=== PATIENT | male | born 1955 | race Caucasian/White ===

== ENCOUNTER → 2021-05-18 13:58 | Outpatient (BNVA) | payer OTHER, MEDICARE, SELFPAY | PROVIDERS: Visit Provider Urology | DX: Z13.89 Encounter for screening for other disorder (principal) | CPT/HCPCS: 99212 ==

== ENCOUNTER 2021-11-08 09:09 | Outpatient (REF) | payer MEDICARE, MEDICAID, SELFPAY ==
[2021-11-08 12:12] LABS: PSA,Total (Free>4and<10) 0.43 ng/mL (0.00-4.00)
== END 2021-11-08 09:10 | disposition home or self-care (01) ==
LOC: HO.HMGCLDS 09:09
PROVIDERS: PCP Nurse Practitioner Family; Visit Provider Urology
DX: Z12.5 Encounter for screening for malignant neoplasm of prostate (principal); N13.8 Other obstructive and reflux uropathy; N40.1 Benign prostatic hyperplasia with lower urinary tract symptoms; R97.20 Elevated prostate specific antigen [PSA]
CPT/HCPCS: 36415; 84153

== ENCOUNTER → 2021-11-16 09:32 | Outpatient (BNVA) | payer MEDICARE, MEDICAID, SELFPAY | PROVIDERS: Visit Provider Urology | DX: N40.1 Benign prostatic hyperplasia with lower urinary tract symptoms (principal); R33.9 Retention of urine, unspecified; N31.9 Neuromuscular dysfunction of bladder, unspecified | CPT/HCPCS: 51798; 99212 ==

== ENCOUNTER 2022-04-26 15:24 | Outpatient (REF) | payer MEDICARE, MEDICAID, SELFPAY ==
--- NOTE | ~2022-04-26 | US_ITS ---
EXAMINATION: US RETROPERITONEAL LIMITED (RENAL ONLY) CLINICAL INFORMATION: Benign prostatic hyperplasia with lower urinary tract symptoms. COMPARISON: None TECHNIQUE: Real-time imaging of the kidneys. FINDINGS: RIGHT KIDNEY: 8.1 x 4.3 x 4.7 cm (SAG x AP x TRV). The kidney is normal in size, contour, and echogenicity. Renal cortical thickness is normal. No calculi or focal parenchymal lesions. No hydronephrosis. LEFT KIDNEY: 9.3 x 4.8 x 5.0 cm (SAG x AP x TRV). The kidney is normal in size, contour, and echogenicity. Renal cortical thickness is normal. No calculi or focal parenchymal lesions. No hydronephrosis. There are multiple punctate calcifications seen without twinkle. US/US renal BI IMPRESSION: Multiple calcification seen in the left kidney without shadowing. There is no hydronephrosis.
== END 2022-04-26 15:25 | disposition home or self-care (01) ==
LOC: HO.US 15:24
PROVIDERS: Visit Provider Urology
DX: N40.1 Benign prostatic hyperplasia with lower urinary tract symptoms (principal); R33.8 Other retention of urine
CPT/HCPCS: 76775

== ENCOUNTER → 2022-05-19 09:47 | Outpatient (BNVA) | payer MEDICARE, MEDICAID, SELFPAY | PROVIDERS: PCP Internal Medicine Endocrinology, Diabetes & Metabolism; Visit Provider Urology | DX: N40.1 Benign prostatic hyperplasia with lower urinary tract symptoms (principal); R33.9 Retention of urine, unspecified; N31.9 Neuromuscular dysfunction of bladder, unspecified; R97.20 Elevated prostate specific antigen [PSA] | CPT/HCPCS: 99212 ==

== ENCOUNTER → 2022-11-21 11:22 | Outpatient (BNVA) | payer MEDICARE, MEDICAID, SELFPAY | PROVIDERS: PCP Internal Medicine Endocrinology, Diabetes & Metabolism; Visit Provider Urology | DX: N40.1 Benign prostatic hyperplasia with lower urinary tract symptoms (principal); R33.8 Other retention of urine; N31.9 Neuromuscular dysfunction of bladder, unspecified | CPT/HCPCS: 51798; 99212 ==

== ENCOUNTER 2023-05-21 12:38 | Outpatient (REF) | payer MEDICARE, MEDICAID, SELFPAY ==
--- NOTE | ~2023-05-21 | US_ITS ---
EXAMINATION: US RETROPERITONEAL LIMITED (RENAL ONLY) CLINICAL INFORMATION: Neuromuscular dysfunction of bladder, unspecified. COMPARISON: Ultrasound retroperitoneal limited (renal only) 04/26/2022. TECHNIQUE: Real-time imaging of the kidneys. FINDINGS: RIGHT KIDNEY: 9.8 x 4.9 x 5.0 cm (SAG x AP x TRV). The kidney is normal in size, contour, and echogenicity. Renal cortical thickness is normal. No calculi or focal parenchymal lesions. No hydronephrosis. Calcifications without shadowing are again seen most likely vascular. LEFT KIDNEY: 9.6 x 5.5 x 5.2 cm (SAG x AP x TRV). The kidney is normal in size, contour, and echogenicity. Renal cortical thickness is normal. No calculi or focal parenchymal lesions. No hydronephrosis. Calcifications without shadowing are again seen most likely vascular US/US renal BI IMPRESSION: Normal-appearing kidneys without hydronephrosis.
== END 2023-05-21 12:39 | disposition home or self-care (01) ==
LOC: HO.US 12:38
PROVIDERS: PCP Internal Medicine Endocrinology, Diabetes & Metabolism; Visit Provider Urology
DX: N31.9 Neuromuscular dysfunction of bladder, unspecified (principal)
CPT/HCPCS: 76775

== ENCOUNTER 2023-07-10 13:35 | Outpatient (AMB) | payer MEDICARE, MEDICAID, SELFPAY ==
--- NOTE | 2023-07-10 13:54 | A.OFFVIS_ITS ---
Intake Intake Visit Reasons: 6M PVR/US(SET) Intake Note: Patient is present for Follow Up US/PVR Urology Med: Bethanechol, Finasteride, Tamsulosin Antibiotic Allergy: None Blood Thinner: None Pharmacy: [facility] PVR: 548ML Allergies acetaminophen [ACETAMINOPHEN] Allergy (Severe, Verified 11/21/22 11:28) HIVES hydrocodone [From Vicodin] Allergy (Unknown, Verified 12/21/22 13:15) Unknown salsalate Allergy (Unknown, Verified 11/21/22 11:28) Unknown simvastatin Allergy (Unknown, Verified 11/21/22 11:28) Unknown tramadol Allergy (Unknown, Verified 11/21/22 11:28) Unknown venlafaxine Allergy (Unknown, Verified 11/21/22 11:28) Unknown codeine [CODEINE] Adverse Reaction (Severe, Verified 11/21/22 11:28) NAUSEA & VOMITING Codeine Phosphate Allergy (Unknown, Uncoded 11/21/22 11:28) Unknown Codeine Sulfate Allergy (Unknown, Uncoded 11/21/22 11:28) Unknown HPI HPI Comments History of Present Illness Details Rc is a pleasant male. He is seen for the following urologic conditions - incomplete bladder emptying - lower urinary tract symptoms High PVRs continued today approximately 560 Discussed CIC again Refill medications and review in 6 months Restart bethanechol Lower urinary tract symptoms Longstanding elevated PVR 600 cc range Current therapy combination with maximum tamsulosin PSA had been as high as 6 normally 1.86 - 11/15 0.4 Imaging - 05/17 renal ultrasound punctate lesions left side PFSH Medical History Anxiety Asthma Elevated PSA HTN (hypertension) Review of Systems Const Denies chills and Denies fever(s) Card Reports no additional complaints and Denies syncope Resp Denies cough GI Denies abdominal pain and Denies heartburn Reports as per HPI and Denies change in libido Neuro Denies syncope Psych Denies change in libido Endo Denies change in libido Physical Exam Const General: cooperative, healthy appearing, comfortable and no acute distress Orientation/consciousness: patient oriented x3 HEENT Face and sinus: Yes normal facial exam Mouth: moist mucous membranes Neck Neck: Yes normal visual inspection, Yes full ROM and Yes trachea midline Chest Chest palpation & inspection: normal inspection of the chest Resp Effort & Inspection: normal respiratory effort, able to speak in complete sentences and no respiratory distress GI Inspection: Yes normal to inspection Back/Spine/Pelvis Cervical Spine: normal cervical lordosis Thoracic/Lumbar Spine: thoracic and lumbar spine normal to inspection Skin General skin exam: no rashes or lesions noted Neuro General: patient oriented x3, gait normal, tone normal and moves all extremities Extrem General: Yes normal to inspection and Yes capillary refill normal Office Procedures Post Void Residual Post Residual Void Post Void Residual (PVR): 548 [id number]-Uufz Void Residual by ultrasound Assessment & Plan Assessment & Plan (1) Elevated PSA: Code(s): R97.20 - Elevated prostate specific antigen [PSA] (2) Hypotonic neurogenic bladder: Code(s): N31.9 - Neuromuscular dysfunction of bladder, unspecified Plan Six month follow-up Orders: Orders AMB Post Void Residual by ultrasound Today N40.1 - Benign prostatic hyperplasia with lower urinary tract symptoms, R33.9 - Retention of urine, unspecified Medications: Changed From bethanechol chloride 50 mg PO BID To bethanechol chloride 50 mg PO BID 180 tabs 1RF 90 days Patient Instructions: Imaging studies, laboratory and physical exam results were discussed and reviewed in detail. No major barriers to patient understanding were identified. An opportunity to ask questions regarding the treatment plan was provided. All questions were answered. The patient expressed understanding and agreement with the above treatment plan. The patient is aware they should contact our office by phone for worsening of their current condition or the appearance of new urologic symptoms. Compliance is encouraged with any medications and followup testing that is ordered. It is a privilege to participate in the urologic care of your patient. If you have any questions or concerns regarding treatment for the above conditions, or other urologic issues, please do not hesitate to contact me. The office telephone contact is [phone]. This note is constructed using voice recognition software. While every effort has been made to ensure accuracy supervisor boat outfitting errors may have been included. Yours sincerely, Dr Piotr Fabian MD, [facility] - Urology Providers of Expert, Compassionate Care for the Genitourinary System Coding Level of Care Code Est Pt Level 3 (82441) Diagnoses Elevated PSA R97.20 Hypotonic neurogenic bladder N31.9 CPT Codes Post Residual Void - PVR CPT Code: 54720-Fyxl Void Residual by ultrasound ([id number])
== END 2023-07-10 14:16 | disposition home or self-care (01) ==
PROVIDERS: Visit Provider Urology
DX: R97.20 Elevated prostate specific antigen [PSA] (principal); N31.9 Neuromuscular dysfunction of bladder, unspecified
CPT/HCPCS: 99213

== ENCOUNTER → 2023-07-10 13:35 | Outpatient (BNVA) | payer MEDICARE, MEDICAID, SELFPAY | PROVIDERS: Visit Provider Urology | DX: R97.20 Elevated prostate specific antigen [PSA] (principal); N31.9 Neuromuscular dysfunction of bladder, unspecified | CPT/HCPCS: 51798; 99212 ==

== ENCOUNTER 2024-03-13 09:59 | Outpatient (AMB) | payer OTHER, MEDICAID, SELFPAY ==
--- NOTE | 2024-03-13 10:21 | MHC.OFFVIS ---
Intake Intake Visit Reasons: 6M PVR(Confirmed) Intake Note: Patient is Present for Follow Up Urology Medication: Bethanechol, Finasteride, Tamsulosin Antibiotic Allergies: None Blood Thinners: None PVR: 239 Allergies acetaminophen [ACETAMINOPHEN] Allergy (Severe, Verified 03/13/24 10:22) HIVES hydrocodone [From Vicodin] Allergy (Unknown, Verified 03/13/24 10:22) Unknown salsalate Allergy (Unknown, Verified 03/13/24 10:22) Unknown simvastatin Allergy (Unknown, Verified 03/13/24 10:22) Unknown tramadol Allergy (Unknown, Verified 03/13/24 10:22) Unknown venlafaxine Allergy (Unknown, Verified 03/13/24 10:22) Unknown codeine [CODEINE] Adverse Reaction (Severe, Verified 03/13/24 10:22) NAUSEA & VOMITING Codeine Phosphate Allergy (Unknown, Uncoded 03/13/24 10:22) Unknown Codeine Sulfate Allergy (Unknown, Uncoded 03/13/24 10:22) Unknown Medication List - Last Reconciled 03/13/24 by Piotr Fabian MD bethanechol chloride 50 mg PO BID 90 days ergocalciferol (vitamin D2) 1,250 mcg PO QWEEK finasteride 5 mg PO DAILY 90 days magnesium oxide 800 mg PO BID tamsulosin 0.8 mg (2 x 0.4 mg) PO DAILY 90 days HPI HPI Comments History of Present Illness Details Rc is a pleasant male. 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 Previously discussed prostate procedure Lower urinary tract symptoms Longstanding elevated PVR 600 cc range Current therapy combination with maximum tamsulosin, finasteride and bethanechol PSA had been as high as 6 normally 1.86 - 11/15 0.4 Imaging - 05/17 renal ultrasound punctate lesions left side PFSH Medical History HTN (hypertension) Anxiety Asthma Elevated PSA Review of Systems Const Denies chills and Denies fever(s) Card Reports no additional complaints and Denies syncope Resp Denies cough GI Denies abdominal pain and Denies heartburn Reports as per HPI and Denies change in libido Neuro Denies syncope Psych Denies change in libido Endo Denies change in libido Physical Exam Const General: cooperative, healthy appearing, comfortable and no acute distress Orientation/consciousness: patient oriented x3 HEENT Face and sinus: Yes normal facial exam Mouth: moist mucous membranes Neck Neck: Yes normal visual inspection, Yes full ROM and Yes trachea midline Chest Chest palpation & inspection: normal inspection of the chest Resp Effort & Inspection: normal respiratory effort, able to speak in complete sentences and no respiratory distress GI Inspection: Yes normal to inspection Back/Spine/Pelvis Cervical Spine: normal cervical lordosis Thoracic/Lumbar Spine: thoracic and lumbar spine normal to inspection Skin General skin exam: no rashes or lesions noted Neuro General: patient oriented x3, gait normal, tone normal and moves all extremities Extrem General: Yes normal to inspection and Yes capillary refill normal Office Procedures Post Void Residual Post Residual Void Post Void Residual (PVR): 239 31122-Ttyc Void Residual by ultrasound Assessment & Plan Assessment & Plan (1) Hypotonic neurogenic bladder: Code(s): N31.9 - Neuromuscular dysfunction of bladder, unspecified (2) Incomplete emptying of bladder due to benign prostatic hyperplasia: Code(s): N40.1 - Benign prostatic hyperplasia with lower urinary tract symptoms; R33.9 - Retention of urine, unspecified Plan Continue six-month follow-up with PVR Orders: Orders AMB Post Void Residual by ultrasound Today N40.1 - Benign prostatic hyperplasia with lower urinary tract symptoms, R33.9 - Retention of urine, unspecified Medications: Refilled bethanechol chloride 50 mg PO BID 90 days 180 tabs 1RF N31.9 - Neuromuscular dysfunction of bladder, unspecified tamsulosin 0.8 mg (2 x 0.4 mg) PO DAILY 90 days 180 caps 1RF N40.1 - Benign prostatic hyperplasia with lower urinary tract symptoms, R33.9 - Retention of urine, unspecified finasteride 5 mg PO DAILY 90 days 90 tabs 1RF N40.1 - Benign prostatic hyperplasia with lower urinary tract symptoms, R33.9 - Retention of urine, unspecified Patient Instructions: Imaging studies, laboratory and physical exam results were discussed and reviewed in detail. No major barriers to patient understanding were identified. An opportunity to ask questions regarding the treatment plan was provided. All questions were answered. The patient expressed understanding and agreement with the above treatment plan. The patient is aware they should contact our office by phone for worsening of their current condition or the appearance of new urologic symptoms. Compliance is encouraged with any medications and followup testing that is ordered. It is a privilege to participate in the urologic care of your patient. If you have any questions or concerns regarding treatment for the above conditions, or other urologic issues, please do not hesitate to contact me. The office telephone contact is [phone]. This note is constructed using voice recognition software. While every effort has been made to ensure accuracy plastic installer errors may have been included. Yours sincerely, Dr Piotr Fabian MD, [facility] - Urology Providers of Expert, Compassionate Care for the Genitourinary System Coding Level of Care Code Est Pt Level 3 (68974) Diagnoses Hypotonic neurogenic bladder N31.9 Incomplete emptying of bladder due to benign prostatic hyperplasia N40.1; R33.9 CPT Codes Post Residual Void - PVR CPT Code: 77342-Orzu Void Residual by ultrasound ([id number])
== END 2024-03-13 10:42 | disposition home or self-care (01) ==
PROVIDERS: PCP Internal Medicine Endocrinology, Diabetes & Metabolism; Visit Provider Urology
DX: N31.9 Neuromuscular dysfunction of bladder, unspecified (principal); N40.1 Benign prostatic hyperplasia with lower urinary tract symptoms; R33.9 Retention of urine, unspecified
CPT/HCPCS: 99213

== ENCOUNTER → 2024-03-13 09:59 | Outpatient (BNVA) | payer OTHER, MEDICARE, MEDICAID, SELFPAY | PROVIDERS: PCP Internal Medicine Endocrinology, Diabetes & Metabolism; Visit Provider Urology | DX: N40.1 Benign prostatic hyperplasia with lower urinary tract symptoms (principal); N13.8 Other obstructive and reflux uropathy; N31.9 Neuromuscular dysfunction of bladder, unspecified; R33.9 Retention of urine, unspecified; Z79.899 Other long term (current) drug therapy | CPT/HCPCS: 51798; 99212 ==

== ENCOUNTER 2024-10-27 11:30 | Outpatient (AMB) | payer OTHER, SELFPAY ==
--- NOTE | 2024-10-27 11:56 | A.OFFVIS_ITS ---
Intake Visit Reasons: 6m/PVR Intake Note: Patient presents today for follow up on: neurogenic bladder and incomplete bladder emptying Urology Medication: Bethanechol, Finasteride, Tamsulosin Antibiotic Allergies: None Blood Thinners: Xarelto PVR: 516ml's Technical Expert Required: No Accompanied by: Self / Same As Patient Allergies acetaminophen [ACETAMINOPHEN] Allergy (Severe, Verified 10/27/24 13:20) HIVES hydrocodone [From Vicodin] Allergy (Unknown, Verified 10/27/24 13:20) Unknown salsalate Allergy (Unknown, Verified 10/27/24 13:20) Unknown simvastatin Allergy (Unknown, Verified 10/27/24 13:20) Unknown tramadol Allergy (Unknown, Verified 10/27/24 13:20) Unknown venlafaxine Allergy (Unknown, Verified 10/27/24 13:20) Unknown codeine [CODEINE] Adverse Reaction (Severe, Verified 10/27/24 13:20) NAUSEA & VOMITING Codeine Phosphate Allergy (Unknown, Uncoded 10/27/24 13:20) Unknown Codeine Sulfate Allergy (Unknown, Uncoded 10/27/24 13:20) Unknown Medication List - Last Reconciled 10/27/24 by HARLEY Botello- bethanechol chloride 50 mg PO BID 90 days ergocalciferol (vitamin D2) 1,250 mcg PO QWEEK finasteride 5 mg PO DAILY 90 days magnesium oxide 800 mg PO BID tamsulosin 0.8 mg (2 x 0.4 mg) PO DAILY 90 days HPI Comments Details: Rc is a pleasant 69 year old male patient of Dr. Bloom. He has a past medical history of hypertension, asthma, anxiety, and elevated PSA. He presents to the office today for follow-up of his incomplete bladder emptying and lower urinary tract symptoms. In discussion with the patient today reports to be doing and feeling well. He denies having had any bothersome urinary issues or concerns since his last office visit here approximately [address] Fabian. He reports compliance with bethanechol, finasteride, and Flomax as prescribed. In office urinalysis results 3+ leukocytes otherwise within normal limits. PVR 516 mL. He denies urinary urgency, urinary frequency, incontinence, nocturia, hematuria, dysuria, foul smelling urine, changes to urinary stream, flank pain, fever, and or chills. He is happy with his current voiding parameters. We discussed at length further treatment options of incomplete bladder emptying and affects of increased in PVR however patient declines to CIC and or have indwelling catheter placed. We discussed potential for UTI given 3+ leukocytes with increased PVR. Will send for urine culture. We discussed at length importance of emptying bladder and affects of not doing so however he continues to decline further intervention although risks were discussed. He otherwise offers no other issues or concerns at this time. Lower urinary tract symptoms Longstanding elevated PVR 600 cc range Current therapy combination with maximum tamsulosin, finasteride and bethanechol PSA had been as high as 6 normally 1.86 - 11/15 0.4 Imaging - 05/17 renal ultrasound punctate lesions left side [facility] Medical History HTN (hypertension) Anxiety Asthma Elevated PSA Review of Systems Const All systems reviewed & are unremarkable except as noted in HPI and below Physical Exam Const General: cooperative, comfortable, no acute distress, well developed, alert and awake Nutritional Appearance: average body habitus Orientation/consciousness: patient oriented x3 Limitations: no limitations HEENT Head: Yes normal to inspection, Yes normocephalic and Yes atraumatic Ears: hearing grossly normal bilaterally Eyes General: appearance normal, both eyes and all related structures Neck Neck: Yes normal visual inspection and Yes trachea midline Chest Chest palpation & inspection: normal inspection of the chest Resp Effort & Inspection: normal respiratory effort and able to speak in complete sentences Cardio Rate: regular rate GI Inspection: Yes normal to inspection General: Yes no CVA tenderness Back/Spine/Pelvis Back: no CVA tenderness Skin General skin exam: no rashes or lesions noted Neuro General: patient oriented x3 Extrem General: Yes normal to inspection Psych Appearance: grossly normal and well kempt Mental Status: mental status grossly normal Speech and movement: Normal speech and movement present and Clear speech present Affect: normal affect Attitude: cooperative Thought process: Normal thought process present Thought content: Normal thought content present Insight: Fair insight present (Psych) Judgement: Fair judgement present (Psych) Office Procedures Post Void Residual Post Residual Void Post Void Residual (PVR): 516 [id number]-[id number] Void Residual by ultrasound Results AMB Urinalysis, Automated UA Leukoctes 500 Matt/uL Last Edit by Kiya Campos on 10/27/24 12:19 UA Nitrite Last Edit by Kiya Campos on 10/27/24 12:19 UA Urobilinogen 0.2 mg/dL Last Edit by Kiya Campos on 10/27/24 12:19 UA Protein 0 mg/dL Last Edit by Kiya Campos on 10/27/24 12:19 UA pH 8.0 Last Edit by Kiya Campos on 10/27/24 12:19 UA Blood 0 Jaya/uL Last Edit by Kiya Campos on 10/27/24 12:19 UA Specific [place] 1.010 Last Edit by Kiya Campos on 10/27/24 12:19 UA Ketone Negative Last Edit by Kiya Campos on 10/27/24 12:19 UA Bilirubin 0 mg/dL Last Edit by Kiya Campos on 10/27/24 12:19 UA Glucose 0 mg/dL Last Edit by Kiya Campos on 10/27/24 12:19 Results Reviewed Results Reviewed: Laboratory Last Values Urine pH (Auto) 8.0 10/27/24 12:18 Specific [place] (Auto) 1.010 10/27/24 12:18 Urine Protein (Auto) 0 mg/dL 10/27/24 12:18 Glucose (UA)(Auto) 0 mg/dL 10/27/24 12:18 Urine Ketones (Auto) Negative 10/27/24 12:18 Urine Blood (Auto) 0 Jaya/uL 10/27/24 12:18 Urine Bilirubin (Auto) 0 mg/dL 10/27/24 12:18 Urine Urobilinogen (Auto) 0.2 mg/dL 10/27/24 12:18 Leukocyte Esterase (Auto) 500 Matt/uL 10/27/24 12:18 Assessment & Plan Assessment & Plan (1) Hypotonic neurogenic bladder: Code(s): N31.9 - Neuromuscular dysfunction of bladder, unspecified Category: Medical (2) Elevated PSA: Code(s): R97.20 - Elevated prostate specific antigen [PSA] Category: Medical (3) Incomplete emptying of bladder due to benign prostatic hyperplasia: Code(s): N40.1 - Benign prostatic hyperplasia with lower urinary tract symptoms; R33.9 - Retention of urine, unspecified Category: Medical (4) Urinary tract infection: Code(s): N39.0 - Urinary tract infection, site not specified Category: Medical Plan In office urinalysis results reviewed with the patient today; as noted above; will send for urine culture. Start Bactrim as discussed and prescribed. PVR 516 mL We discussed further treatment options of incomplete bladder emptying/urinary retention; we discussed CIC verses indwelling catheter however despite Education regarding importance in doing so patient continues to decline either treatment option. He reports be happy with current voiding parameters. Continue bethanechol, Flomax, and finasteride as prescribed. Discussed obtaining PSA status post completion of antibiotic therapy as results can be skewed due to potential urinary tract infection. Follow-up with nursing in 2 weeks to further assess PVR. Follow-up with provider in 1-2 months; or sooner with any issues, concerns, and or questions. Orders: Orders AMB Urinalysis Automated Today Z13.9 - Encounter for screening, unspecified Prostate Specific Antigen Today R97.20 - Elevated prostate specific antigen [PSA] AMB Post Void Residual by ultrasound Today N31.9 - Neuromuscular dysfunction of bladder, unspecified Urine Culture Today Z13.9 - Encounter for screening, unspecified Medications: New sulfamethoxazole-trimethoprim 800-160 mg (Bactrim DS) 1 tab PO BID 7 days 14 tabs 0RF N39.0 - Urinary tract infection, site not specified Refilled tamsulosin 0.8 mg (2 x 0.4 mg) PO DAILY 90 days 180 caps 1RF N40.1 - Benign prostatic hyperplasia with lower urinary tract symptoms, R33.9 - Retention of urine, unspecified finasteride 5 mg PO DAILY 90 days 90 tabs 1RF N40.1 - Benign prostatic hyperplasia with lower urinary tract symptoms, R33.9 - Retention of urine, unspecified bethanechol chloride 50 mg PO BID 90 days 180 tabs 1RF N31.9 - Neuromuscular dysfunction of bladder, unspecified Patient Instructions: The patient had an opportunity to ask questions regarding the treatment plan. All questions were answered. Physical exam, labs, and imaging were discussed and reviewed in detail. As well as risks, benefits, and discussion of treatment choices. No major barriers to understanding were identified. The patient expressed understanding and agreement with the above treatment plan. The patient was made aware they should contact our office by phone for worsening of their current condition, the appearance of new symptoms, or with any questions or concerns. Compliance is encouraged with any medications and follow up testing that is ordered. It is a privilege to be allowed the opportunity to participate in? your urological care.? Again, if you have any questions or concerns If you have any questions or concerns please do not hesitate to contact me. The office is [phone]. This note is constructed using voice recognition software. While every effort has been made to ensure accuracy community engagement specialist errors may have been included. Yours sincerely, LA Botello Coding Level of Care Code Est Pt Level 4 (32308) Complex EM visit Add On G2211 Diagnoses Hypotonic neurogenic bladder N31.9 Elevated PSA R97.20 Incomplete emptying of bladder due to benign prostatic hyperplasia N40.1; R33.9 Urinary tract infection N39.0 CPT Codes Post Residual Void - PVR CPT Code: 33333-Ufnf Void Residual by ultrasound ([id number])
== END 2024-10-27 12:30 | disposition home or self-care (01) ==
PROVIDERS: PCP Internal Medicine Endocrinology, Diabetes & Metabolism; Visit Provider Nurse Practitioner Family
DX: N31.9 Neuromuscular dysfunction of bladder, unspecified (principal); R97.20 Elevated prostate specific antigen [PSA]; N40.1 Benign prostatic hyperplasia with lower urinary tract symptoms; R33.9 Retention of urine, unspecified; N39.0 Urinary tract infection, site not specified; Z13.9 Encounter for screening, unspecified
CPT/HCPCS: 99214; G2211

== ENCOUNTER 2024-10-27 11:30 | Outpatient (REF) | payer OTHER, SELFPAY | END 2024-10-27 11:31 | disposition home or self-care (01) | LOC: HO.LNP 11:30 | PROVIDERS: PCP Internal Medicine Endocrinology, Diabetes & Metabolism; Visit Provider Nurse Practitioner Family | DX: R97.20 Elevated prostate specific antigen [PSA] (principal); N31.9 Neuromuscular dysfunction of bladder, unspecified; N39.0 Urinary tract infection, site not specified; N40.1 Benign prostatic hyperplasia with lower urinary tract symptoms; R33.9 Retention of urine, unspecified | CPT/HCPCS: 51798; 81003; 87086; 99212 ==

== ENCOUNTER → 2024-11-10 10:41 | Outpatient (BNVA) | payer OTHER, SELFPAY | PROVIDERS: PCP Internal Medicine Endocrinology, Diabetes & Metabolism; Visit Provider Nurse Practitioner Family | DX: N40.1 Benign prostatic hyperplasia with lower urinary tract symptoms (principal); N31.9 Neuromuscular dysfunction of bladder, unspecified; N39.0 Urinary tract infection, site not specified; R33.8 Other retention of urine | CPT/HCPCS: 51798 ==

== ENCOUNTER 2024-12-26 12:10 | Outpatient (REF) | payer OTHER, SELFPAY ==
[2024-12-26 14:30] LABS: Prostate Specific Antigen 0.42 ng/mL (<0.05-4.0)
== END 2024-12-26 12:11 | disposition home or self-care (01) ==
LOC: HO.10HDL 12:10
PROVIDERS: Visit Provider Nurse Practitioner Family
DX: Z12.5 Encounter for screening for malignant neoplasm of prostate (principal); R97.20 Elevated prostate specific antigen [PSA]
CPT/HCPCS: 36415; 84153

== ENCOUNTER 2024-12-29 11:21 | Outpatient (AMB) | payer OTHER, SELFPAY ==
--- NOTE | 2024-12-29 11:32 | A.OFFVIS_ITS ---
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 Required: No Accompanied by: Self / Same As Patient Allergies acetaminophen [ACETAMINOPHEN] Allergy (Severe, Verified 12/29/24 12:07) HIVES hydrocodone [From Vicodin] Allergy (Unknown, Verified 12/29/24 12:07) Unknown salsalate Allergy (Unknown, Verified 12/29/24 12:07) Unknown simvastatin Allergy (Unknown, Verified 12/29/24 12:07) Unknown tramadol Allergy (Unknown, Verified 12/29/24 12:07) Unknown venlafaxine Allergy (Unknown, Verified 12/29/24 12:07) Unknown codeine [CODEINE] Adverse Reaction (Severe, Verified 12/29/24 12:07) NAUSEA & VOMITING Codeine Phosphate Allergy (Unknown, Uncoded 12/29/24 12:07) Unknown Codeine Sulfate Allergy (Unknown, Uncoded 12/29/24 12:07) Unknown Medication List - Last Reconciled 12/29/24 by HARLEY Botello- bethanechol chloride 50 mg PO BID 90 days ergocalciferol (vitamin D2) 1,250 mcg PO QWEEK finasteride 5 mg PO DAILY 90 days magnesium oxide 800 mg PO BID tamsulosin 0.8 mg (2 x 0.4 mg) PO DAILY 90 days HPI Comments Details: Rc is a pleasant 69 year old male patient of Dr. Bloom was accompanied by his significant other at today's office visit. He has a past medical history of hypertension, asthma, anxiety, and elevated PSA. He presents to the office today for follow-up of his incomplete bladder emptying and lower urinary tract symptoms. In discussion with the patient today reports new onset of gross hematuria this morning. He reports he has been performing CIC at least 2 times per day. However, he did not catheterize today as he woke up with gross hematuria. We discussed at length potential causes of gross hematuria as well as further interventions. He does have a longstanding history of nicotine dependence for over 40 years. Unable to obtain urine for urinalysis as patient was unable to void however PVR 445ml's. He reports compliance with urological medications as prescribed which include Flomax, finasteride, and bethanechol. We discussed obtaining CT urogram for further assessment evaluation as well as in office cystoscopy for further assessment evaluation. He denies murinary urgency, urinary frequency, incontinence, nocturia, dysuria, foul smelling urine, changes to urinary stream, flank pain, fever, and or chills. We discussed at length further interventions regarding incomplete bladder emptying/urinary retention he continues to decline further treatment options although we discussed risks of incomplete bladder emptying/urinary retention. He otherwise offers no other issues or concerns at this time. Lower urinary tract symptoms Longstanding elevated PVR 600 cc range Current therapy combination with maximum tamsulosin, finasteride and bethanechol PSA had been as high as 6 normally 1.86 - 11/15 0.4 Imaging - 05/17 renal ultrasound punctate lesions left side [facility] Medical History HTN (hypertension) Anxiety Asthma Elevated PSA Review of Systems Const All systems reviewed & are unremarkable except as noted in HPI and below Physical Exam Const General: cooperative, comfortable, no acute distress, well developed, alert and awake Nutritional Appearance: average body habitus Orientation/consciousness: patient oriented x3 Limitations: no limitations HEENT Head: Yes normal to inspection, Yes normocephalic and Yes atraumatic Ears: hearing grossly normal bilaterally Eyes General: appearance normal, both eyes and all related structures Neck Neck: Yes normal visual inspection and Yes trachea midline Chest Chest palpation & inspection: normal inspection of the chest Resp Effort & Inspection: normal respiratory effort and able to speak in complete sentences Cardio Rate: regular rate GI Inspection: Yes normal to inspection General: Yes no CVA tenderness Back/Spine/Pelvis Back: no CVA tenderness Skin General skin exam: no rashes or lesions noted Neuro General: patient oriented x3 Extrem General: Yes normal to inspection Psych Appearance: grossly normal and well kempt Mental Status: mental status grossly normal Speech and movement: Normal speech and movement present and Clear speech present Affect: normal affect Attitude: cooperative Thought process: Normal thought process present Thought content: Normal thought content present Insight: Fair insight present (Psych) Judgement: Fair judgement present (Psych) Office Procedures Post Void Residual Post Residual Void Post Void Residual (PVR): 445 [id number]-[id number] Void Residual by ultrasound Assessment & Plan Assessment & Plan (1) Gross hematuria: Code(s): R31.0 - Gross hematuria Category: Medical (2) Hypotonic neurogenic bladder: Code(s): N31.9 - Neuromuscular dysfunction of bladder, unspecified Category: Medical (3) Elevated PSA: Code(s): R97.20 - Elevated prostate specific antigen [PSA] Category: Medical (4) Incomplete emptying of bladder due to benign prostatic hyperplasia: Code(s): N40.1 - Benign prostatic hyperplasia with lower urinary tract symptoms; R33.9 - Retention of urine, unspecified Category: Medical Plan Unable to obtain urine for urinalysis however PVR 445 mL. We discussed at length potential causes of incomplete bladder emptying/urinary retention and gross hematuria. Will obtain CT urogram for further assessment evaluation. We discussed further treatment options of incomplete bladder emptying/urinary retention. He continues to decline further treatment options and would like to continue to CIC 2 times per day; we discussed importance in doing so. Will obtain BUN and creatinine for imaging. Will obtain PSA for further assessment evaluation. Continue Flomax, finasteride, and bethanechol as prescribed. We discussed at length the importance of limiting/quitting nicotine dependence for overall health and well-being. Follow-up in office cystoscopy with imaging and labs to be completed prior; or sooner with any issues, concerns, and or questions. Orders: Orders AMB Post Void Residual by ultrasound Today N40.1 - Benign prostatic hyperplasia with lower urinary tract symptoms, R33.9 - Retention of urine, unspecified CT urogram Today R31.0 - Gross hematuria Prostate Specific Antigen Today R31.0 - Gross hematuria Blood Urea Nitrogen Today R31.0 - Gross hematuria Creatinine Today R31.0 - Gross hematuria Patient Instructions: The patient had an opportunity to ask questions regarding the treatment plan. All questions were answered. Physical exam, labs, and imaging were discussed and reviewed in detail. As well as risks, benefits, and discussion of treatment choices. No major barriers to understanding were identified. The patient exp ressed understanding and agreement with the above treatment plan. The patient was made aware they should contact our office by phone for worsening of their current condition, the appearance of new symptoms, or with any questions or concerns. Compliance is encouraged with any medications and follow up testing that is ordered. It is a privilege to be allowed the opportunity to participate in? your urological care.? Again, if you have any questions or concerns If you have any questions or concerns please do not hesitate to contact me. The office is [phone]. This note is constructed using voice recognition software. While every effort has been made to ensure accuracy supervisor coal handling errors may have been included. Yours sincerely, AMERICO Botello Coding Level of Care Code Est Pt Level 4 (39981) Complex EM visit Add On G2211 Diagnoses Gross hematuria R31.0 Hypotonic neurogenic bladder N31.9 Elevated PSA R97.20 Incomplete emptying of bladder due to benign prostatic hyperplasia N40.1; R33.9 CPT Codes Post Residual Void - PVR CPT Code: 02154-Pmub Void Residual by ultrasound ([id number])
== END 2024-12-29 12:10 | disposition home or self-care (01) ==
PROVIDERS: PCP Internal Medicine Endocrinology, Diabetes & Metabolism; Visit Provider Nurse Practitioner Family
DX: R31.0 Gross hematuria (principal); N31.9 Neuromuscular dysfunction of bladder, unspecified; R97.20 Elevated prostate specific antigen [PSA]; N40.1 Benign prostatic hyperplasia with lower urinary tract symptoms; R33.9 Retention of urine, unspecified
CPT/HCPCS: 99214; G2211

== ENCOUNTER → 2024-12-29 11:21 | Outpatient (BNVA) | payer OTHER, SELFPAY | PROVIDERS: PCP Internal Medicine Endocrinology, Diabetes & Metabolism; Visit Provider Nurse Practitioner Family | DX: N31.9 Neuromuscular dysfunction of bladder, unspecified (principal); R31.0 Gross hematuria; R97.20 Elevated prostate specific antigen [PSA]; N40.1 Benign prostatic hyperplasia with lower urinary tract symptoms; R33.8 Other retention of urine | CPT/HCPCS: 51798; 99212 ==

== ENCOUNTER 2025-01-26 09:16 | Outpatient (REF) | payer OTHER, SELFPAY ==
[2025-01-26 10:55] LABS: Blood Urea Nitrogen 14 mg/dL (9-16); Estimated Glomerular Filt Rate > 60
[2025-01-26 11:15] LABS: Prostate Specific Antigen 0.51 ng/mL (<0.05-4.0)
== END 2025-01-26 09:17 | disposition home or self-care (01) ==
LOC: HO.10HDL 09:16
PROVIDERS: Visit Provider Nurse Practitioner Family
DX: R31.0 Gross hematuria (principal); Z12.5 Encounter for screening for malignant neoplasm of prostate
CPT/HCPCS: 36415; 82565; 84153; 84520

== ENCOUNTER 2025-02-24 15:19 | Outpatient (REF) | payer OTHER, SELFPAY ==
--- NOTE | ~2025-02-24 | CT_ITS ---
CLINICAL HISTORY: R31.0 - Gross hematuria CT abdomen and pelvis with and without contrast Comparison: US/SR - US RENAL BI - 05/21/23 12:49 EDT Findings: No consolidation at the lung bases. Elevation of the right hemidiaphragm. Cholelithiasis. No gallbladder wall thickening or pericholecystic fluid. The bladder is distended, measuring 13.1 cm in craniocaudal dimension. There is bladder wall thickening and diverticula. No bladder stone. 1.5 cm lesion in the left adrenal gland which measures-10 Hounsfield units on the noncontrast images, indicating an adrenal adenoma. No hydronephrosis or nephrolithiasis. The kidneys enhance normally and excrete contrast symmetrically. The prostate is normal in size, measuring 3.6 cm in transverse dimension. The other solid organs are unremarkable. Underdistention is favored over wall thickening of the stomach. No bowel wall thickening or dilation. A normal appendix is identified. There are anastomotic sutures at the rectosigmoid junction. No aneurysm. The infrarenal abdominal aorta measures up to 2.6 cm. Intraluminal calcifications within the infrarenal abdominal aorta with associated soft plaque, chronic. Severe calcified atherosclerotic disease. No lymphadenopathy. No ascites. Status post supraumbilical ventral hernia repair. Small fat containing left inguinal hernia. No acute osseous abnormality. Impression: No urinary tract stone or acute obstruction. Mild wall thickening of the bladder with diverticula likely indicates chronic outlet obstruction. This document has been electronically signed by: Kira Herrera MD on 02/25/2025 16:59:37
[2025-02-24] MEDS: iohexoL 350 MG/ML 100 ML INFUS..BTL IV (17:00)
== END 2025-02-24 15:20 | disposition home or self-care (01) ==
LOC: HO.CT 15:19
PROVIDERS: PCP Nurse Practitioner Family; Visit Provider Nurse Practitioner Family
DX: R31.0 Gross hematuria (principal)
CPT/HCPCS: 74178; Q9967

== ENCOUNTER → 2025-02-24 15:21 | Outpatient (BNV) | payer OTHER, SELFPAY | PROVIDERS: PCP Nurse Practitioner Family; Visit Provider Radiology Diagnostic Radiology | DX: R31.0 Gross hematuria (principal) | CPT/HCPCS: 74178 ==

== ENCOUNTER 2025-03-20 10:41 | Outpatient (AMB) | payer OTHER, SELFPAY ==
--- NOTE | 2025-03-20 10:46 | A.OFFVIS_ITS ---
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: No Accompanied by: Self / Same As Patient Allergies acetaminophen [ACETAMINOPHEN] Allergy (Severe, Verified 03/20/25 10:47) HIVES hydrocodone [From Vicodin] Allergy (Unknown, Verified 03/20/25 10:47) Unknown salsalate Allergy (Unknown, Verified 03/20/25 10:47) Unknown simvastatin Allergy (Unknown, Verified 03/20/25 10:47) Unknown tramadol Allergy (Unknown, Verified 03/20/25 10:47) Unknown venlafaxine Allergy (Unknown, Verified 03/20/25 10:47) Unknown codeine [CODEINE] Adverse Reaction (Severe, Verified 03/20/25 10:47) NAUSEA & VOMITING Codeine Phosphate Allergy (Unknown, Uncoded 12/29/24 12:07) Unknown Codeine Sulfate Allergy (Unknown, Uncoded 12/29/24 12:07) Unknown HPI Comments Details: Rc is a pleasant male. He is seen for the following urologic conditions - incomplete bladder emptying - lower urinary tract symptoms Recent episode of gross hematuria Has been performing CIC at least twice a day Lower PVR 240 cc, prior PVR 560 Continue with bethanechol, finasteride and Flomax Previously discussed prostate procedure Hematuria Imaging - 02/17 CT Urogram - The bladder is distended, measuring 13.1 cm in craniocaudal dimension. There is bladder wall thickening and diverticula Lower urinary tract symptoms Longstanding elevated PVR 600 cc range Current therapy combination with maximum tamsulosin, finasteride and bethanechol PSA had been as high as 6 normally 1.86 - 11/15 0.4 Imaging - 05/17 renal ultrasound punctate lesions left side [facility] Medical History HTN (hypertension) Anxiety Asthma Elevated PSA Review of Systems Const Denies chills and Denies fever(s) Card Reports no additional complaints and Denies syncope Resp Denies cough GI Denies abdominal pain and Denies heartburn Reports as per HPI and Denies change in libido Neuro Denies syncope Psych Denies change in libido Endo Denies change in libido Physical Exam Const General: cooperative, healthy appearing, comfortable and no acute distress Orientation/consciousness: patient oriented x3 HEENT Face and sinus: Yes normal facial exam Mouth: moist mucous membranes Neck Neck: Yes normal visual inspection, Yes full ROM and Yes trachea midline Chest Chest palpation & inspection: normal inspection of the chest Resp Effort & Inspection: normal respiratory effort, able to speak in complete sentences and no respiratory distress GI Inspection: Yes normal to inspection Back/Spine/Pelvis Cervical Spine: normal cervical lordosis Thoracic/Lumbar Spine: thoracic and lumbar spine normal to inspection Skin General skin exam: no rashes or lesions noted Neuro General: patient oriented x3, gait normal, tone normal and moves all extremities Extrem General: Yes normal to inspection and Yes capillary refill normal Office Procedures Cystoscopy Consent Discussed risk and benefit or proposed procedure with the patient. Information consent for procedure given to the patient. Discussed technical aspects, risks, benefits and alternatives in full. Addressed all of the patient's questions and concerns regarding the procedure. The patient demonstrated knowledge and understanding. They wish to proceed with this procedure. Preparation The patient was prepped in the usual manner. A wildlife removal specialist was present and in the room. Genitalia was prepped with betadine solution in a sterile manner. Lidocaine Jelly 2% was placed into the urethra and 16Fr flexible Olympus cystoscope was inserted into the meatus after adequate lubrication. Procedure Cystoscopy performed using a disposable Urovue digital 16 Bel[place]ian cystoscope. Meatus circumcised Urethra anterior and posterior urethra normal Prostatic Urethra open BPH Bladder examination with retroflexion of cystoscope Bladder Orifices normal shape and position Bladder Capacity Normal Trabeculations grade 3 Cellule Formation yes Diverticulum Formation - Mucosal Erythema - - Bladder Tumor - - [id number]-[id number] DISPOSABLE SCOPE URO-G FLEXIBLE SCOPE Procedure code (CPT) selection complete Office Meds lidocaine HCl 2 % mucosal jelly in applicator Performing Provider: Piotr Fabian MD Performing Location: [facility] Administered by: Solomon Kaplan LPN on 03/20/25 11:10 Dose Route Admin Location Dispensed Lot Number Expiration Date ND Fishing Vessel Mate 10 mL intra-urethral 10 mL nitrofurantoin monohydrate/macrocrystals 100 mg capsule Performing Provider: Piotr Fabian MD Performing Location: [facility] Administered by: Solomon Kaplan LPN on 03/20/25 11:10 Dose Route Admin Location Dispensed Lot Number Expiration Date NDC Fishing Vessel Mate 100 mg PO 1 cap Results AMB Urinalysis, Automated UA Leukoctes 125 Matt/uL Last Edit by Evette Ladd on 03/20/25 16:32 UA Nitrite Negative Last Edit by Evette Ladd on 03/20/25 16:32 UA Urobilinogen 0.2 mg/dL Last Edit by Eevtte Ladd on 03/20/25 16:32 UA Protein 15 mg/dL Last Edit by Evette Ladd on 03/20/25 16:32 UA pH 5.5 Last Edit by Evette Ladd on 03/20/25 16:32 UA Blood 0 Jaya/uL Last Edit by Evette Ladd on 03/20/25 16:32 UA Specific Lulu 1.015 Last Edit by Evette Ladd on 03/20/25 16:32 UA Ketone Negative Last Edit by Evette Ladd on 03/20/25 16:32 UA Bilirubin 0 mg/dL Last Edit by Evette Ladd on 03/20/25 16:32 UA Glucose 0 mg/dL Last Edit by Evette Ladd on 03/20/25 16:32 Results Reviewed Results Reviewed: Laboratory Last Values Urine pH (Auto) 5.5 03/20/25 16:30 Specific Lulu (Auto) 1.015 03/20/25 16:30 Urine Protein (Auto) 15 mg/dL 03/20/25 16:30 Glucose (UA)(Auto) 0 mg/dL 03/20/25 16:30 Urine Ketones (Auto) Negative 03/20/25 16:30 Urine Blood (Auto) 0 Jaya/uL 03/20/25 16:30 Urine Nitrite (Auto) Negative 03/20/25 16:30 Urine Bilirubin (Auto) 0 mg/dL 03/20/25 16:30 Urine Urobilinogen (Auto) 0.2 mg/dL 03/20/25 16:30 Leukocyte Esterase (Auto) 125 Matt/uL 03/20/25 16:30 Assessment & Plan Assessment & Plan (1) Incomplete emptying of bladder due to benign prostatic hyperplasia: Code(s): N40.1 - Benign prostatic hyperplasia with lower urinary tract symptoms; R33.9 - Retention of urine, unspecified Category: Medical (2) Gross hematuria: Code(s): R31.0 - Gross hematuria Category: Medical (3) Hypotonic neurogenic bladder: Code(s): N31.9 - Neuromuscular dysfunction of bladder, unspecified Category: Medical Plan Six-month follow-up Orders: Orders AMB Urinalysis Automated 03/20/25 Z13.9 - Encounter for screening, unspecified AMB Cystoscopy 03/20/25 R31.0 - Gross hematuria, N31.9 - Neuromuscular dysfunction of bladder, unspecified, N40.1 - Benign prostatic hyperplasia with lower urinary tract symptoms, R33.9 - Retention of urine, unspecified Patient Instructions: This note is constructed using voice recognition software. While every effort has been made to ensure accuracy whiskey proof reader errors may have been included. Imaging studies, laboratory and physical exam results were discussed and reviewed in detail. No major barriers to patient understanding were identified. An opportunity to ask questions regarding the treatment plan was provided. All questions were answered. The patient expressed understanding and agreement with the above treatment plan. The patient is aware they should contact our office by phone for worsening of their current condition or the appearance of new urologic symptoms. Compliance is encouraged with any medications and followup testing that is ordered. It is a privilege to participate in the urologic care of your patient. If you have any questions or concerns regarding treatment for the above conditions, or other urologic issues, please do not hesitate to contact me. The office telephone contact is [phone]. Sincerely, Dr Piotr Fabian MD, [facility] - Urology Compassionate Specialist Care for the Genitourinary System Coding Level of Care Code Est Pt Level 3 (52486) Complex EM visit Add On G2211 Diagnoses Incomplete emptying of bladder due to benign prostatic hyperplasia N40.1; R33.9 Gross hematuria R31.0 Hypotonic neurogenic bladder N31.9 CPT Codes Cystoscopy - CPT: 63642-[id number] ([id number])
== END 2025-03-20 12:09 | disposition home or self-care (01) ==
LOC: HO.HUSH 10:42
PROVIDERS: PCP Nurse Practitioner Family; Visit Provider Urology
DX: N40.1 Benign prostatic hyperplasia with lower urinary tract symptoms (principal); R33.9 Retention of urine, unspecified; R31.0 Gross hematuria; N31.9 Neuromuscular dysfunction of bladder, unspecified
CPT/HCPCS: 52000; 99213

== ENCOUNTER → 2025-03-20 10:41 | Outpatient (BNVA) | payer OTHER, SELFPAY | PROVIDERS: PCP Nurse Practitioner Family; Visit Provider Urology | DX: N40.1 Benign prostatic hyperplasia with lower urinary tract symptoms (principal); N31.9 Neuromuscular dysfunction of bladder, unspecified; R33.9 Retention of urine, unspecified; R31.0 Gross hematuria | CPT/HCPCS: 52000; 81003; 99212 ==

== ENCOUNTER 2025-08-14 12:30 | Outpatient (REF) | payer OTHER, SELFPAY ==
--- OUTSIDE RECORDS SUMMARY | 2025-08-14 12:34 | XMS_ITS | Encounter Summary ---
Author Organization [facility] Address [address] [place] [address] [place] [phone] Phone Care Team Providers Care Station Attendant Name Role Phone Renato Bloom NP Primary Care Provide r Encounter Details Date Type Department Care Team (Late st Contact Info) Description 06/29/2021 Procedure Pass [facility] Endoscopy Admitting Dept Virtual Department [address] [place] [address] Social History Tobacco Use Types Packs/Day Years Used Date Smoking Tobacco: Smoker, Current Status Unknown Cigarettes Smokeless Tobacco: Never Alcohol Use Standard Drinks/Week Comments No 0 (1 standard drink = 0.6 oz pur e alcohol) Sex and Gender Information Value Date Recorded Sex Assigned at Not on file Legal Sex Male 5:49 PM EST Gender Identity Not on file Sexual Orientation Not on file documented as of this encounter Plan of Treatment Not on file documented as of this encounter Visit Diagnoses Not on filedocumented in this encounter Care Teams Station Attendant Relationship Specialty Start Date End Date Renato Bloom NP [address] [place] [address] PCP - General Family Medicine 06/16/21 documented as of this encounter Additional Source Comments The information contained in this document represents components of the legal health record. It is not the complete legal health record.[facility]
--- OUTSIDE RECORDS SUMMARY | 2025-08-14 12:34 | XMS_ITS | Encounter Summary ---
Author Organization [facility] Address [address] [place] [address] Phone Care Team Providers Care Bulk Station Operator Name Role Phone Alanna Sparks MD Primary Care Provider +1- [phone] Renato Bloom NP Primary Care Provide r Encounter Details Date Type Department Care Team (Latest Contact Info) Description 05/24/2021 Transcribe Orders [facility] Laboratory 10 [facility] 2nd [place] [address] Laureen Gonzalez PA-C 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 Co de Phone Number [address] [address] * (ABNORMAL) Ferritin (05/24/2021 3:21 PM EDT) FERRITIN 15(L) 30 - 400 ug/L [facility] Blood 05/24/2021 3:21 PM EDT 05/24/2021 3:32 PM EDT Laureen Gonzalez PA-C LAB BLOOD ORDERABLES Final Resu lt Performing Organization Address [facility] Co de Phone Number [address] [address] * TSH (05/24/2021 3:21 PM EDT) TSH 2.13 0.27 - 4.20 uIU/mL [facility] Blood 05/24/2021 3:21 PM EDT 05/24/2021 3:32 PM EDT Laureen Gonzalez PA-C LAB BLOOD ORDERABLES Final Resu lt Performing Organization Address [facility] Co de Phone Number [address] [address] * (ABNORMAL) Iron and iron binding capacity (05/24/2021 3:21 PM EDT) IRON 20(L) 45 - 160 ug/dL [facility] IRON BINDING CAPACITY 366 228 - 428 ug/dL [facility] TRANSFERRIN SATURAT. 5(L) 20 - 55 % [facility] Blood 05/24/2021 3:21 PM EDT 05/24/2021 3:32 PM EDT us Laureen Gonzalez PA-C LAB BLOOD ORDERABLES Final Resu lt Performing Organization Address City/[facility]/ZIP Co de Phone Number [address] [address] * (ABNORMAL) Lipase (05/24/2021 3:21 PM EDT) LIPASE 9(L) 16 - 63 U/L [facility] Blood 05/24/2021 3:21 PM EDT 05/24/2021 3:32 PM EDT us Laureen Gonzalez PA-C LAB BLOOD ORDERABLES Final Resu lt Performing Organization Address [facility]/ZIP Co de Phone Number [address] [address] * C-Reactive Protein (05/24/2021 3:21 PM EDT) C REACTIVE PROTEIN <3.0 0.0 - 4.0 mg/L [facility] Blood 05/24/2021 3:21 PM EDT 05/24/2021 3:32 PM EDT us Laureen Gonzalez PA-C LAB BLOOD ORDERABLES Final Resu lt Performing Organization Address [facility]/ZIP Co de Phone Number [address] [address] * (ABNORMAL) Comprehensive metabolic panel (05/24/2021 3:21 PM EDT) SODIUM 138 133 - 146 mmol/L [facility] POTASSIUM 4.6 3.3 - 5.1 mmol/L [facility] CHLORIDE 103 96 - 108 mmol/L [facility] CO2 25 21 - 35 mmol/L [facility] BUN 11 6 - 19 mg/dL [facility] CREATININE 1.00 0.5 - 1.5 mg/dL [facility] GLUCOSE 96 70 - 99 mg/dL [facility] ALBUMIN 3.8(L) 3.9 - 4.8 g/dL [facility] TOTAL PROTEIN 7.3 6.5 - 8.0 g/dL [facility] CALCIUM 9.0 8.4 - 10.3 mg/dL [facility] ALKALINE PHOSPHATASE 72 39 - 117 U/L [facility] TOTAL BILIRUBIN 0.2 0.0 - 1.2 mg/dL [facility] AST 22 0 - 37 U/L [facility] ALT 6 0 - 40 U/L [facility] GLOBULIN 3.5 1 - 4.8 g/dL [facility] EGFR 78 >59 mL/min/1.7 3m2 [facility] Comment:Estimated glomerular filtration rate calculated using the CKD-EPI equation. ANION GAP 15 10 - 20 mmol/L [facility] Blood 05/24/2021 3:21 PM EDT 05/24/2021 3:32 PM EDT us Laureen Gonzalez PA-C LAB BLOOD ORDERABLES Final Resu lt Performing Organization Address City/State/[facility] Co de Phone Number [address] [address] * (ABNORMAL) CBC (05/24/2021 3:21 PM EDT) WBC 8.22 4.00 - 11.00 K/uL [facility] RBC 3.59(L) 3.90 - 5.69 M/uL [facility] HGB 8.1(L) 12.4 - 17.3 g/dL [facility] HCT 26.5(L) 37.0 - 51.0 % [facility] PLT 303 140 - 430 K/uL [facility] MCV 73.8(L) 78.0 - 97.0 fL [facility] MCH 22.6(L) 25.0 - 33.0 pg [facility] MCHC 30.6(L) 32.0 - 36.0 g/dL [facility] RDW 18.1(H) 11.0 - 15.0 % [facility] MPV 11.2 8.4 - 12.8 fl [facility] NRBC 0.00 0 /100 WBCs [facility] ABSOLUTE NRBC 0.00 0 K/uL [facility] Blood 05/24/2021 3:21 PM EDT 05/24/2021 3:32 PM EDT us Laureen Gonzalez PA-C LAB BLOOD ORDERABLES Final Resu lt Performing Organization Address [facility] Co de Phone Number [address] [address] * Immunoglobulin A (05/24/2021 3:21 PM EDT) IgA 378 70 - 400 mg/dL [facility] Blood 05/24/2021 3:21 PM EDT 05/24/2021 3:32 PM EDT us Laureen Gonzalez PA-C LAB BLOOD ORDERABLES Final Resu lt Performing Organization Address [facility] Co de Phone Number [address] [address] * Tissue transglutaminase IgA (05/24/2021 3:21 PM EDT) TTG IGA ANTIBODY <1.2 <4.0 (Negative) U/mL [facility] Blood 05/24/2021 3:21 PM EDT 05/24/2021 3:31 PM EDT Laureen Gonzalez PA-C LAB BLOOD ORDERABLES Final Resu lt Performing Organization Address City/[facility]/ZIP Co de Phone Number [facility] [address] [place] [address] documented in this encounter Visit Diagnoses Diagnosis Barrera's esophagus without dysplasia- Primary Anemia, unspecified type Change in bowel habit documented in this encounter Care Teams Bulk Station Operator Relationship Specialty Start Date End Date Alanna Sparks MD [address] [place] [address] PCP - General Internal Medicine 04/09/18 06/15/21 Renato Bloom NP [address] [place] [address] PCP - General Family Medicine 06/16/21 documented as of this encounter Additional Source Comments The information contained in this document represents components of the legal health record. It is not the complete legal health record.[facility]
--- OUTSIDE RECORDS SUMMARY | 2025-08-14 12:34 | XMS_ITS | Encounter Summary ---
Author Organization [facility] Address [address] [place] [address] Phone Care Team Providers Care Active Directory Specialist Name Role Phone Alanna Sparks MD Primary Care Provider +1- [phone] Renato Bloom NP Primary Care Provide r Encounter Details Date Type Department Care Team (Late st Contact Info) Description 04/09/2018 Procedure Pass [facility] Endoscopy Admitting Dept Virtual Department [address] [place] [address] Social History Tobacco Use Types Packs/Day Years [...] on filedocumented in this encounter Care Teams Active Directory Specialist Relationship Specialty Start Date End Date Alanna Sparks MD [address] [place] [address] PCP - General Internal Medicine 04/09/18 06/15/21 Renato Bloom, RAY [address] [place] [address] PCP - General Family Medicine 06/16/21 documented as of this encounter Additional Source Comments The information contained in this document represents components of the legal health record. It is not the complete legal health record.[facility]
--- OUTSIDE RECORDS SUMMARY | 2025-08-14 12:34 | XMS_ITS | Encounter Summary ---
Author Organization [facility] Address [address] [place] [address] Phone Care Team Providers Care Maintenance Shop Manager Name Role Phone Alanna Sparks MD Primary Care Provider +1- [phone] Renato Bloom NP Primary Care Provide r Encounter Details Date Type Department Care Team (Latest Contact Info) Description 07/16/2019 Transcribe Orders [facility] Laboratory [address]nd [place] [address] Mack Gilliam MD [address] 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); Personal history of colonic polyps; Anemia, unspecified type Social History Tobacco Use Types Packs/Day Years [...] as of this encounter Results * (ABNORMAL) Ferritin (07/16/2019 12:02 PM EDT) FERRITIN 14(L) 30 - 400 ug/L [facility] Blood 07/16/2019 12:0 2 PM EDT 07/16/2019 12:07 PM EDT us Mack Gilliam MD LAB BLOOD ORDERABLES Final R esult Performing Organization Address City/[facility]/ZIP Co de Phone Number [address] [address] * (ABNORMAL) Iron and iron binding capacity (07/16/2019 12:02 PM EDT) IRON 32(L) 45 - 160 ug/dL [facility] IRON BINDING CAPACITY 359 228 - 428 ug/dL [facility] TRANSFERRIN SATURAT. 9(L) 20 - 55 % [facility] Blood 07/16/2019 12:0 2 PM EDT 07/16/2019 12:07 PM EDT us Mack Gilliam MD LAB BLOOD ORDERABLES Final R esult Performing Organization Address [facility] Co de Phone Number [address] [address] * C-Reactive Protein (07/16/2019 12:02 PM EDT) C REACTIVE PROTEIN <0.3 0.0 - 4.0 mg/L [facility] Blood 07/16/2019 12:0 2 PM EDT 07/16/2019 12:07 PM EDT Mack Gilliam MD LAB BLOOD ORDERABLES Final R esult Performing Organization Address [facility] Co de Phone Number [address] [address] * (ABNORMAL) Comprehensive metabolic panel (07/16/2019 12:02 PM EDT) SODIUM 137 133 - 146 mmol/L [facility] POTASSIUM 4.6 3.3 - 5.1 mmol/L [facility] CHLORIDE 101 96 - 108 mmol/L [facility] CO2 25 21 - 35 mmol/L [facility] BUN 10 6 - 19 mg/dL [facility] CREATININE 1.00 0.5 - 1.5 mg/dL [facility] GLUCOSE 178(H) 70 - 99 mg/dL [facility] ALBUMIN 4.3 3.9 - 4.8 g/dL [facility] TOTAL PROTEIN 7.0 6.5 - 8.0 g/dL [facility] CALCIUM 9.6 8.4 - 10.3 mg/dL [facility] ALKALINE PHOSPHATASE 70 39 - 117 U/L [facility] TOTAL BILIRUBIN 0.2 0.0 - 1.2 mg/dL [facility] AST 13 0 - 37 U/L [facility] ALT 7 0 - 40 U/L [facility] GLOBULIN 2.7 1 - 4.8 g/dL [facility] EGFR 79 >59 mL/min/1.7 3m2 [facility] Comment:If patient is black, multiply result by 1.159. Estimated glomerular filtration rate calculated using the CKD-EPI equation. ANION GAP 16 10 - 20 mmol/L [facility] Blood 07/16/2019 12:0 2 PM EDT 07/16/2019 12:07 PM EDT us Mack Gilliam MD LAB BLOOD ORDERABLES Final R esult [facility] [address] [place] [address] * (ABNORMAL) CBC (07/16/2019 12:02 PM EDT) WBC 8.63 3.40 - 11.20 K/uL [facility] RBC 4.37(L) 4.50 - 5.50 M/uL [facility] HGB 10.5(L) 13.0 - 17.0 g/dL [facility] HCT 33.8(L) 40.0 - 51.0 % [facility] PLT 363 130 - 400 K/uL [facility] MCV 77.3(L) 79.0 - 98.0 fL [facility] MCH 24.0(L) 27.0 - 34.8 pg [facility] MCHC 31.1(L) 31.5 - 36.0 g/dL [facility] RDW 17.6(H) 10.8 - 14.6 % [facility] MPV 10.7 9.4 - 12.4 fl [facility] NRBC 0.00 0.00 /100 WBCs [facility] ABSOLUTE NRBC 0.00 0.00 K/uL [facility] Blood 07/16/2019 12:0 2 PM EDT 07/16/2019 12:07 PM EDT Mack Gilliam MD LAB BLOOD ORDERABLES Final R esult [address] [address] * Immunoglobulin A (07/16/2019 12:02 PM EDT) IgA 344 70 - 400 mg/dL [facility] Blood 07/16/2019 12:0 2 PM EDT 07/16/2019 12:07 PM EDT Mack Gilliam MD LAB BLOOD ORDERABLES Final R esult Performing Organization Address [facility] Co de Phone Number [address] [address] * Gliadin deamidated antibody, IgG/IgA (07/16/2019 12:02 PM EDT) Gliadin Ab, IGA <10.0 <20.0 (Negative) [facility] GLIADIN AB IGG <10.0 <20.0 (Negative) U [facility] Blood 07/16/2019 12:0 2 PM EDT 07/16/2019 12:07 PM EDT Mack Gilliam MD LAB BLOOD ORDERABLES Final R esult [facility] [address] [place] [address] * Tissue transglutaminase IgA (07/16/2019 12:02 PM EDT) TTG IGA ANTIBODY <1.2 <4.0 (Negative) U/mL [facility] Blood 07/16/2019 12:0 2 PM EDT 07/16/2019 12:07 PM EDT us Mack Gilliam MD LAB BLOOD ORDERABLES Final R esult [facility] [address] [place] [address] documented in this encounter Visit Diagnoses Diagnosis Barrera's esophagus without dysplasia- Primary Personal history of colonic polyps Anemia, unspecified type documented in this encounter Care Teams Maintenance Shop Manager Relationship Specialty Start Date End Date Alanna Sparks MD [address] [place] [phone] PCP - General Internal Medicine 04/09/18 06/15/21 Renato Bloom NP [address] [place] [address] PCP - General Family Medicine 06/16/21 documented as of this encounter Additional Source Comments The information contained in this document represents components of the legal health record. It is not the complete legal health record.[facility]
--- OUTSIDE RECORDS SUMMARY | 2025-08-14 12:34 | XMS_ITS | Encounter Summary ---
Author Organization [facility] Address [address] [place] [address] Phone Care Team Providers Care Entrepreneurial Finance Professor Name Role Phone Alanna Sparks MD Primary Care Provider +1- [phone] Renato Bloom NP Primary Care Provide r Encounter Details Date Type Department Care Team (Late st Contact Info) Description 08/26/2019 Procedure Pass [facility] Endoscopy Admitting Dept Virtual Department [address] [place] [address] Social History Tobacco Use Types Packs/Day Years [...] on filedocumented in this encounter Care Teams Entrepreneurial Finance Professor Relationship Specialty Start Date End Date Alanna Sparks MD [address] [place] [address] PCP - General Internal Medicine 04/09/18 06/15/21 Renato Bloom, RAY [address] [place] [address] PCP - General Family Medicine 06/16/21 documented as of this encounter Additional Source Comments The information contained in this document represents components of the legal health record. It is not the complete legal health record.[facility]
--- OUTSIDE RECORDS SUMMARY | 2025-08-14 12:34 | XMS_ITS | Clinical Summary ---
Author Organization [facility] Address [address] [place] [address] Phone Care Team Providers Care Inker And Opaquer Name Role Phone Renato Bloom NP Primary Care Provide r Allergies Active Allergy Reactions Criticality Noted Date Comments Acetaminophen 04/09/2018 Codeine 04/09/2018 Hydrocodone-Acetaminophen 04/09/2018 Medications midodrine (PROAMATINE) 5 MG tablet Take 5 mg by mouth 3 (three) times a day. Active metFORMIN (GLUCOPHAGE) 1000 MG tablet Take 1,000 mg by mouth 2 (two) times a day with meals. Active omeprazole (PRILOSEC) 20 mg TbEC Take 20 mg by mouth daily before breakfast. Active aspirin 81 mg chewable tablet Take 81 mg by mouth daily. Active warfarin (COUMADIN) 2 MG tablet Take 2 mg by mouth daily. Active oxyCODONE 5 MG immediate release tablet Take 5 mg by mouth every 4 (four) hours as needed for moderate pain. Active amitriptyline (ELAVIL) 25 MG tablet Take 25 mg by mouth nightly. Active metoprolol succinate (TOPROL-XL) 25 MG 24 hr tablet Take 25 mg by mouth daily. Active gabapentin (NEURONTIN) 100 MG capsule Take 100 mg by mouth 3 (three) times a day. Active albuterol (ACCUNEB) 0.63 mg/3 mL nebulizer solution Take 1 ampule by nebulization every 6 (six) hours as needed for wheezing. Active atorvastatin (LIPITOR) 10 MG tablet Take 10 mg by mouth daily. Active thiamine (VITAMIN B-1) 100 MG tablet Take 100 mg by mouth daily. Active Social History Tobacco Use Types Packs/Day Years Used Date Smoking Tobacco: Smoker, Current Status Unknown Cigarettes Smokeless Tobacco: Never Alcohol Use Standard Drinks/Week Comments No 0 (1 standard drink = 0.6 oz pur e alcohol) Education Answer Date Recorded Are you interested in more education? Not on matti e 03/31/2023 Are you concerned about learning? Not on file 03/31/2023 No 03/31/2023 No 03/31/2023 Digital Access Answer Date Recorded No 04/22/2023 No 04/22/2023 No 04/22/2023 Reliable internet access at home? Not on file 04/22/2023 Device with a working camera? Not on file Sex and Gender Information Value Date Recorded Sex Assigned at Not on file Legal Sex Male 5:49 PM EST Gender Identity Not on file Sexual Orientation Not on file Last Filed Vital Signs Vital Sign Reading Time Taken Comments Blood Pressure 134/88 04/09/2018 8:30 AM EDT Pulse 67 04/09/2018 7:28 AM EDT Temperature 36 C (96.8 F) 04/09/2018 8:15 AM EDT Respiratory Rate 20 04/09/2018 8:30 AM EDT Oxygen Saturation 90% 04/09/2018 8:30 AM EDT Inhaled Oxygen Concentration - - Weight 79.8 kg (176 lb) 04/09/2018 7:28 AM EDT Height 172.7 cm (5' 8 ) 04/09/2018 7:28 AM EDT Body Mass Index 26.76 04/09/2018 7:28 AM EDT Plan of Treatment Health Maintenance Due Date Last Done Comments LIPID PANEL 1955 DEPRESSION SCREENING 1967 SMOKING Hx and SMOKELESS TOBACCO SCREENING 1968 HEPATITIS C SCREENING 1973 COLOGUARD 2000 COLONOSCOPY 2000 COLORECTAL CANCER SCREENING 2000 FIT TEST 2000 FOBT 2000 SIGMOIDOSCOPY 2000 VIRTUAL COLONOSCOPY 2000 ZOSTER VACCINES (3 of 3) 07/01/2018 018, 07/30/2015 Adult Td,Tdap Booster 11/26/2019 11/26/2009 ABDOMINAL AORTIC ANEURYSM (AAA) SCREENING 2020 PNEUMOCOCCAL VACCINES (50+ years) (2 of 2 - PCV) 09/17/2021 09/17/2020 CREATININE LEVEL 05/24/2022 05/24/2021, 07/16/2019 INFLUENZA VACCINE (#1) 2025 0, 01/18/2018, 08/29/2016 COVID-19 VACCINE (2 - 2024-2 6 season) 2025 06/24/2021 RSV VACCINE (1 - 1-dose 75+ series) 2030 HEPATITIS A VACCINES Aged Out No long er eligible based on patient's age to complete this topic HIB VACCINES Aged Out No longer eligi ble based on patient's age to complete this topic MENINGOCOCCAL VACCINES (ACWY) Aged Out No longer eligible based on patient's age to complete this topic MENINGOCOCCAL VACCINES (B) Aged Out N o longer eligible based on patient's age to complete this topic Medical Devices Not on file Procedures Procedure Name Priority Date/Time Associated Diagnosis Comments COMPREHENSIVE METABOLIC PANEL Routine 05/24/2021 3:21 PM EDT Barrera's esophagus without dysplasia Anemia, unspecified type Change in bowel habit from Last 3 Months or Most Recently Relevant to Health Maintenance Results * (ABNORMAL) Comprehensive metabolic panel (05/24/2021 3:21 PM EDT) SODIUM 138 133 - 146 mmol/L [facility] POTASSIUM 4.6 3.3 - 5.1 mmol/L [facility] CHLORIDE 103 96 - 108 mmol/L [facility] CO2 25 21 - 35 mmol/L [facility] BUN 11 6 - 19 mg/dL [facility] CREATININE 1.00 0.5 - 1.5 mg/dL [facility] GLUCOSE 96 70 - 99 mg/dL [facility] ALBUMIN 3.8(L) 3.9 - 4.8 g/dL [facility] TOTAL PROTEIN 7.3 6.5 - 8.0 g/dL [facility] CALCIUM 9.0 8.4 - 10.3 mg/dL [facility] ALKALINE PHOSPHATASE 72 39 - 117 U/L [facility] TOTAL BILIRUBIN 0.2 0.0 - 1.2 mg/dL [facility] AST 22 0 - 37 U/L [facility] ALT 6 0 - 40 U/L [facility] GLOBULIN 3.5 1 - 4.8 g/dL [facility] EGFR 78 >59 mL/min/1.7 3m2 [facility] Comment:Estimated glomerular filtration rate calculated using the CKD-EPI equation. ANION GAP 15 10 - 20 mmol/L [facility] Blood 05/24/2021 3:21 PM EDT 05/24/2021 3:32 PM EDT us Laureen Gonzalez PA-C LAB BLOOD ORDERABLES Final Resu lt [facility] [address] [place] [address] from Last 3 Months or Most Recently Relevant to Health Maintenance Insurance [facility] MEDIC[facility] PART A & [facility] [place] [facility] [place] & B [facility] MED[facility] A & B [facility] MED[facility] A & B [facility] Member Subscriber Plan / Payer (Ef fective 2021-Present) Name:Rc Nolasco Relation to Subscriber:Self Name:Rc Nolasco Payer ID:[id number] (NAIC) Group ID:Not on file Type:Indemnity Address: [facility] [employer] [id number] [place] [id number] [place] PART A & B [facility] [place] & B [facility] PART A & [facility] MEDIC[facility] PART A & B [facility] Care Teams Inker And Opaquer Relationship Specialty Start Date End Date Renato Bloom NP [address] [place] [address] PCP - General Family Medicine 06/16/21 Additional Source Comments The information contained in this document represents components of the legal health record. It is not the complete legal health record.[facility]
--- OUTSIDE RECORDS SUMMARY | 2025-08-14 12:34 | XMS_ITS ---
Author Organization [facility] Care Team Providers Care Feed Crusher Name Role Phone Linda San Unavailable Unavailable Isai Patel Unavailable Unavailable Tomasz Valadez Unavailable Unavailable Allergies and adverse reactions Code CodeSystem Substance Reaction Severity StartDate Concern Status 5489 RXNORM HYDROcodone Unknown 03/17/2022 active 2670 RXNORM Codeine Unknown 03/17/2022 active 1191 RXNORM Aspirin Unknown 03/17/2022 active 161 RXNORM Acetaminophen Mild 03/17/2022 active Care Team Name Role Address Phone Organization Dates Linda San PCP [address] [place] [address], [address], [facility] (Office): [phone] (Fax): [phone] [facility] 07/26/2022 - 08/18/2022 Isai Patel [address] [place] [address], [address], [facility] (Office): : [facility] 07/26/2022 - 08/18/2022 Tomasz Valadez [address] [place] [address], [address], [facility] (Office): [phone] (Fax): [phone] [facility] 07/26/2022 - 08/18/2022 Mental Status Section Date Assessment Total Score Description 08/18/2022 BIMS 14 cognitively int act CAM 0 No delirium ind icated PHQ-9 00 07/29/2022 BIMS 14 cognitively int act CAM 0 No delirium ind icated PHQ-9 02 minimal depress ion Problems Problem # Description Date of onset Resolved Date Code CodeSystem Concern Status 1 ABDOMINAL AORTIC ANEURYSM, WITHOUT RUPTURE 07/26/[address] active 2 FULL INCONTINENCE OF FECES 07/26/[address] active 3 LOW BACK PAIN, UNSPECIFIED 07/26/[address] active 4 MELENA 07/26/[address] active 5 OTHER CHRONIC PAIN 07/26/[address] active 6 OTHER SPECIFIED URINARY INCONTINENCE 07/26/[address] active 7 RASH AND OTHER NONSPECIFIC SKIN ERUPTION 07/26/[address] active 8 SYNCOPE AND COLLAPSE 07/26/[address] active 9 UNSPECIFIED PROTEIN-CALORIE MALNUTRITION 07/26/[address] active 10 URINARY TRACT INFECTION, SITE NOT SPECIFIED 03/24/[address] active 11 ALCOHOL DEPENDENCE, IN REMISSION 03/17/[address] active 12 BENIGN PROSTATIC HYPERPLASIA WITH LOWER URINARY TRACT SYMPTOMS 03/17/[address] active 13 CERVICAL DISC DISORDER WITH MYELOPATHY, MID-CERVICAL REGION, UNSPECIFIED LEVEL 03/17/[address] active 14 CHEST PAIN, UNSPECIFIED 03/17/[address] active 15 CHRONIC OBSTRUCTIVE PULMONARY DISEASE, UNSPECIFIED 03/17/[address] active 16 DIVERTICULITIS OF INTESTINE, PART UNSPECIFIED, WITHOUT PERFORATION OR ABSCESS WITHOUT BLEEDING 03/17/[address] active 17 EMPHYSEMA, UNSPECIFIED 03/17/[address] active 18 EPILEPTIC SEIZURES RELATED TO EXTERNAL CAUSES, NOT INTRACTABLE, WITHOUT STATUS EPILEPTICUS 03/17/[address] active 19 ESSENTIAL (PRIMARY) HYPERTENSION 03/17/[address] active 20 GASTRO-ESOPHAGEAL REFLUX DISEASE WITHOUT ESOPHAGITIS 03/17/[address] active 21 HYPERLIPIDEMIA, UNSPECIFIED 03/17/[address] active 22 HYPERMAGNESEMIA 03/17/[address] ac tive 23 HOUSE SHORER (CURRENT) USE OF ANTICOAGULANTS 03/17/[address] active 24 MAJOR DEPRESSIVE DISORDER, SINGLE EPISODE, UNSPECIFIED 03/17/[address] active 25 NICOTINE DEPENDENCE, CIGARETTES, UNCOMPLICATED 03/17/[address] active 26 ORTHOSTATIC HYPOTENSION 03/17/[address] active 27 OTHER DISORDERS OF ELECTROLYTE AND FLUID BALANCE, NOT ELSEWHERE CLASSIFIED 03/17/[address] active 28 OTHER FATIGUE 03/17/[address] acti ve 29 PERSONAL HISTORY OF COVID-19 03/17/[address] active 30 PERSONAL HISTORY OF OTHER DISEASES OF THE CIRCULATORY SYSTEM 03/17/[address] active 31 TYPE 2 DIABETES MELLITUS WITH DIABETIC POLYNEUROPATHY 03/17/[address] active 32 TYPE 2 DIABETES MELLITUS WITHOUT COMPLICATIONS 03/17/[address] active 33 UNSPECIFIED ATRIAL FIBRILLATION 03/17/[address] active 34 WEAKNESS 03/17/[address] active Reason for Referral No Reasons for Referral Entered Social History Social History Observation Description Start Date End Date Code Code System Current Smoking Status Tobacco smoking consumption unknown 507881181 SNOMED CT Sex Assigned At Male 1955 80454-2 [facility] Gender Identity Sexual Orientation Vital Signs Code Code System Vitals Name Values and Units Timing Information 9279-1 [facility] Respiratory Rate Value=20.0 Units=/m in 08/18/2022 8462-4 [facility] Blood Pressure-Diastolic Value=77 Un its=mmHg 08/18/2022 8480-6 [facility] Blood Pressure-Systolic Pcypl=969 Un its=mmHg 08/18/2022 8310-5 [facility] Body Temperature Value=97.5 Units= F 08/18/2022 8867-4 [facility] Heart rate Sxrzi=366.0 Units=/min 08/18/2022 80577-6 [facility] O2 % BldC Oximetry Value=98.0 Units= % 08/18/2022 28487-1 [facility] Pain Level Value=0.0 08/17/2022 37868-9 [facility] Weight Sfeoy=503.1 Units=Lbs 2339-0 [facility] Blood Sugar Jivme=927.0 Units=mg/dL 03/22/2022 8302-2 [facility] Height Value=68.0 Units=Inches 03/22/2022
[2025-08-14 13:28] LABS: Appearance Urine Turbid; Glucose Urine UA Negative (Negative); PH 6.5 (5.0-9.0); Specific Gravity - Urine 1.020 (1.005-1.025); UMIC TRIGGER UA YES
== END 2025-08-14 12:31 | disposition home or self-care (01) ==
LOC: HO.10HDLNP 12:30
PROVIDERS: Visit Provider Nurse Practitioner Family
DX: N40.1 Benign prostatic hyperplasia with lower urinary tract symptoms (principal); R33.8 Other retention of urine; N39.0 Urinary tract infection, site not specified
CPT/HCPCS: 81001; 87086

== ENCOUNTER 2025-10-09 09:08 | Outpatient (REF) | payer OTHER, SELFPAY | END 2025-10-09 09:09 | disposition home or self-care (01) | LOC: HO.LAB 09:08 | PROVIDERS: PCP Nurse Practitioner Family; Visit Provider Urology | DX: N40.1 Benign prostatic hyperplasia with lower urinary tract symptoms (principal); R33.8 Other retention of urine; N31.9 Neuromuscular dysfunction of bladder, unspecified; N39.0 Urinary tract infection, site not specified; Z79.899 Other long term (current) drug therapy | CPT/HCPCS: 51798; 81003; 87086; 87088; 87186; 99212 ==

== ENCOUNTER 2025-10-09 09:08 | Outpatient (AMB) | payer OTHER, SELFPAY ==
--- NOTE | 2025-10-09 09:35 | A.OFFVIS_ITS ---
Intake Visit Reasons: 6M PVR Intake Note: Patient is present for PVR Urology Med: Bethanechol, Finasteride, Tamsulosin Antibiotic Allergy: None Blood Thinner: None Last PVR: 445ML PVR: 196ml Last PSA- 0.51 01/26/2025 [employer] Required: No Allergies acetaminophen (ACETAMINOPHEN) Allergy (Severe, Verified 03/20/25 10:47) HIVES hydrocodone (From Vicodin) Allergy (Unknown, Verified 03/20/25 10:47) Unknown salsalate Allergy (Unknown, Verified 03/20/25 10:47) Unknown simvastatin Allergy (Unknown, Verified 03/20/25 10:47) Unknown tramadol Allergy (Unknown, Verified 03/20/25 10:47) Unknown venlafaxine Allergy (Unknown, Verified 03/20/25 10:47) Unknown codeine (CODEINE) Adverse Reaction (Severe, Verified 03/20/25 10:47) NAUSEA & VOMITING Codeine Phosphate Allergy (Unknown, Uncoded 12/29/24 12:07) Unknown Codeine Sulfate Allergy (Unknown, Uncoded 12/29/24 12:07) Unknown HPI Comments Details: Rc is a pleasant male. He is seen for the following urologic cond itions - incomplete bladder emptying - lower urinary tract symptoms Has asymptomatic bacteriuria PVR today 200 cc Flomax was stopped after dizziness in hospital Lower PVR 240 cc, prior PVR 560 Previously discussed prostate procedure We will move ahead with GreenLight laser Antibiotics for 5 days Hematuria Imaging - 02/17 CT Urogram - The bladder is distended, measuring 13.1 cm in craniocaudal dimension. There is bladder wall thickening and diverticula Lower urinary tract symptoms Longstanding elevated PVR 600 cc range Current therapy combination with maximum tamsulosin, finasteride and bethanechol PSA had been as high as 6 normally 1.86 - 11/15 0.4 Imaging - 05/17 renal ultrasound punctate lesions left side [facility] Medical History HTN (hypertension) Anxiety Asthma Elevated PSA Review of Systems Const Denies chills and Denies fever(s) Card Reports no additional complaints and Denies syncope Resp Denies cough GI Denies abdominal pain and Denies heartburn Reports as per HPI and Denies change in libido Neuro Denies syncope Psych Denies change in libido Endo Denies change in libido Physical Exam Const General: cooperative, healthy appearing, comfortable and no acute distress Orientation/consciousness: patient oriented x3 HEENT Face and sinus: Yes normal facial exam Mouth: moist mucous membranes Neck Neck: Yes normal visual inspection, Yes full ROM and Yes trachea midline Chest Chest palpation & inspection: normal inspection of the chest Resp Effort & Inspection: normal respiratory effort, able to speak in complete sentences and no respiratory distress GI Inspection: Yes normal to inspection Back/Spine/Pelvis Cervical Spine: normal cervical lordosis Thoracic/Lumbar Spine: thoracic and lumbar spine normal to inspection Skin General skin exam: no rashes or lesions noted Neuro General: patient oriented x3, gait normal, tone normal and moves all extremities Extrem General: Yes normal to inspection and Yes capillary refill normal Office Procedures Post Void Residual Post Residual Void Post Void Residual (PVR): 196 39153-Cqvw Void Residual by ultrasound Results AMB Urinalysis, Automated UA Leukoctes 500 Matt/uL Last Edit by Maude Lynne [facility] on 10/09/25 09:47 UA Nitrite Positive Last Edit by Maude Lynne [facility] on 10/09/25 09:47 UA Urobilinogen 0.2 mg/dL Last Edit by Maude Lynne [facility] on 10/09/25 09:4 7 UA Protein 100 mg/dL Last Edit by Maude Lynne [facility] on 10/09/25 09:47 UA pH 6.0 Last Edit by Maude Lynne [facility] on 10/09/25 09:47 UA Blood 80 Jaya/uL Last Edit by Maude Lynne [facility] on 10/09/25 09:47 UA Specific Clarkia 1.010 Last Edit by Maude Lynne [facility] on 10/09/25 09: 47 UA Ketone Negative Last Edit by Maude Lynne [facility] on 10/09/25 09:47 UA Bilirubin 0 mg/dL Last Edit by Maude Lynne [facility] on 10/09/25 09:47 UA Glucose 0 mg/dL Last Edit by Maude Lynne [facility] on 10/09/25 09:47 Results Reviewed Results Reviewed: Laboratory Last Values Urine pH (Auto) 6.0 10/09/25 09:38 Specific Clarkia (Auto) 1.010 10/09/25 09:38 Urine Protein (Auto) 100 mg/dL 10/09/25 09:38 Glucose (UA)(Auto) 0 mg/dL 10/09/25 09:38 Urine Ketones (Auto) Negative 10/09/25 09:38 Urine Blood (Auto) 80 Jaya/uL 10/09/25 09:38 Urine Nitrite (Auto) Positive 10/09/25 09:38 Urine Bilirubin (Auto) 0 mg/dL 10/09/25 09:38 Urine Urobilinogen (Auto) 0.2 mg/dL 10/09/25 09:38 Leukocyte Esterase (Auto) 500 Matt/uL 10/09/25 09:38 Assessment & Plan Assessment & Plan (1) Incomplete emptying of bladder due to benign prostatic hyperplasia: Code(s): N40.1 - Benign prostatic hyperplasia with lower urinary tract symptoms; R33.9 - Retention of urine, unspecified Category: Medical (2) Hypotonic neurogenic bladder: Code(s): N31.9 - Neuromuscular dysfunction of bladder, unspecified Category: Medical Plan We discussed the nature of the decision and reasonable options for performing a prostate intervention. Interventions include TURP, GreenLight laser enucleation of the prostate, GreenLight laser ablation of the prostate, transurethral incision of the prostate, and I-Tend prostate procedure. Options such as medical therapy were discussed. The relative uncertainties and benefits related to each alternate procedure were adequately discussed. General surgical risks including, but not limited to, pain, bleeding, infection, myocardial infarction, pulmonary embolus, deep vein thrombosis and cerebrovascular accident which may result in further hospitalization were discussed. Full disclosure of the procedure as well as all major risks, benefits and complications were discussed including but not limited to damage to the urethra or bladder neck, recurrent BPH, retrograde ejaculation, bladder infection, urge, de diaz frequency, incomplete emptying, dysuria, remote chance of erectile dysfunction, epididymitis, and meatal stenosis. The success rate of the procedure was discussed. Success of the procedure in the short-term does not necessarily guarantee that long-term success will be maintained. Suitable follow up will need to be maintained. The patient showed understanding of discussion. An opportunity was provided for questions to be answered and wishes to proceed with the following procedure. - GreenLight laser Orders: Orders AMB Post Void Residual by ultrasound Today N40.1 - Benign prostatic hyperplasia with lower urinary tract symptoms, R33.9 - Retention of urine, unspecified AMB Urinalysis Automated Today Z13.9 - Encounter for screening, unspecified AMB Post Void Residual by ultrasound Today N40.1 - Benign prostatic hyperplasia with lower urinary tract symptoms, R33.9 - Retention of urine, unspecified Urine Culture Today N39.0 - Urinary tract infection, site not specified Medications: New sulfamethoxazole-trimethoprim 400-80 mg (Bactrim) 1 tab PO BID 10 tabs 0RF 5 days N39.0 - Urinary tract infection, site not specified Coding Level of Care Code Est Pt Level 4 (15258) Complex EM visit Add On G2211 Diagnoses Incomplete emptying of bladder due to benign prostatic hyperplasia N40.1; R33.9 Hypotonic neurogenic bladder N31.9 CPT Codes Post Residual Void - PVR CPT Code: 01736-Omii Void Residual by ultrasound ([id number])
--- OUTSIDE RECORDS SUMMARY | 2025-10-09 09:46 | XMS_ITS | Encounter Summary ---
Author Organization [facility] Address [address] [place] [address] Phone Care Team Providers Care Tram Operator Name Role Phone Alanna Sparks MD Primary Care Provider [phone] Renato Bloom NP Primary Care Provide r Encounter Details Date Type Department Care Team (Latest Contact Info) Description 07/16/2019 Transcribe Orders [facility] [address] [place] [address] Mack Gilliam MD 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 (Primary Dx); Personal [...] EDT) FERRITIN 14(L) 30 - 400 ug/L [facility] Blood 07/16/2019 12:0 2 PM EDT 07/16/2019 12:07 PM EDT Mack Gilliam MD LAB BLOOD BKR ORDERABLES Fin al Result Performing Organization Address [facility] Co de Phone Number [address] [address] * (ABNORMAL) Iron and iron binding capacity (07/16/2019 12:02 PM EDT) Pathologist [facility] IRON 32(L) 45 - 160 ug/dL [facility] IRON BINDING CAPACITY 359 228 - 428 ug/dL [facility] TRANSFERRIN SATURAT. 9(L) 20 - 55 % [facility] Blood 07/16/2019 12:0 2 PM EDT 07/16/2019 12:07 PM EDT us Mack Gilliam MD LAB BLOOD BKR ORDERABLES Fin al Result Performing Organization Address [facility] Co de Phone Number [address] [address] * C-Reactive Protein (07/16/2019 12:02 PM EDT) Pathologist [facility] C REACTIVE PROTEIN <0.3 0.0 - 4.0 mg/L [facility] Blood 07/16/2019 12:0 2 PM EDT 07/16/2019 12:07 PM EDT Mack Gilliam MD LAB BLOOD BKR ORDERABLES Fin al Result Performing Organization Address [facility] Co de Phone Number [address] [address] * (ABNORMAL) Comprehensive metabolic panel (07/16/2019 12:02 PM EDT) SODIUM 137 133 - 146 mmol/L [facility] POTASSIUM 4.6 3.3 - 5.1 mmol/L [facility] CHLORIDE 101 96 - 108 mmol/L [facility] CO2 25 21 - 35 mmol/L [facility] BUN 10 6 - 19 mg/dL [facility] CREATININE 1.00 0.5 - 1.5 mg/dL [facility] GLUCOSE 178(H) 70 - 99 mg/dL [facility] ALBUMIN 4.3 3.9 - 4.8 g/dL [facility] TOTAL PROTEIN 7.0 6.5 - 8.0 g/dL [facility] CALCIUM 9.6 8.4 - 10.3 mg/dL [facility] ALKALINE PHOSPHATASE 70 39 - 117 U/L [facility] TOTAL BILIRUBIN 0.2 0.0 - 1.2 mg/dL [facility] AST 13 0 - 37 U/L [facility] ALT 7 0 - 40 U/L [facility] GLOBULIN 2.7 1 - 4.8 g/dL [facility] EGFR 79 >59 mL/min/1.7 3m2 [facility] Comment:If patient is black, multiply result by 1.159. Estimated glomerular filtration rate calculated using the CKD-EPI equation. ANION GAP 16 10 - 20 mmol/L [facility] Blood 07/16/2019 12:0 2 PM EDT 07/16/2019 12:07 PM EDT us Mack Gilliam MD LAB BLOOD BKR ORDERABLES Fin al Result [address] [address] * (ABNORMAL) CBC (07/16/2019 12:02 PM EDT) WBC 8.63 3.40 - 11.20 K/uL [facility] RBC 4.37(L) 4.50 - 5.50 M/uL [facility] HGB 10.5(L) 13.0 - 17.0 g/dL [facility] HCT 33.8(L) 40.0 - 51.0 % [facility] PLT 363 130 - 400 K/uL [facility] MCV 77.3(L) 79.0 - 98.0 fL [facility] MCH 24.0(L) 27.0 - 34.8 pg [facility] MCHC 31.1(L) 31.5 - 36.0 g/dL [facility] RDW 17.6(H) 10.8 - 14.6 % [facility] MPV 10.7 9.4 - 12.4 fl [facility] NRBC 0.00 0.00 /100 WBCs [facility] ABSOLUTE NRBC 0.00 0.00 K/uL [facility] Blood 07/16/2019 12:0 2 PM EDT 07/16/2019 12:07 PM EDT us Mack Gilliam MD LAB BLOOD BKR ORDERABLES Fin al Result Performing Organization Address City/[facility]/ZIP Co de Phone Number [address] [address] * Immunoglobulin A (07/16/2019 12:02 PM EDT) IgA 344 70 - 400 mg/dL [facility] Blood 07/16/2019 12:0 2 PM EDT 07/16/2019 12:07 PM EDT us Mack Gilliam MD LAB BLOOD BKR ORDERABLES Fin al Result Performing Organization Address [facility] Co de Phone Number [address] [address] * Gliadin deamidated antibody, IgG/IgA (07/16/2019 12:02 PM EDT) Gliadin Ab, IGA <10.0 <20.0 (Negative) U [facility] GLIADIN AB IGG <10.0 <20.0 (Negative) U [facility] Blood 07/16/2019 12:0 2 PM EDT 07/16/2019 12:07 PM EDT Mack Gilliam MD LAB BLOOD ORDERABLES Final R esult Performing Organization Address City/[facility]/ZIP Co de Phone Number [facility] [address] [place] [address] * Tissue transglutaminase IgA (07/16/2019 12:02 PM EDT) TTG IGA ANTIBODY <1.2 <4.0 (Negative) U/mL [facility] [address] Blood 07/16/2019 12:0 2 PM EDT 07/16/2019 12:07 PM EDT us Mack Gilliam MD LAB BLOOD BKR ORDERABLES Fin al Result [facility] [address] [place] [address] documented in this encounter Visit Diagnoses Diagnosis Barrera's esophagus without dysplasia- Primary Personal history of colonic polyps Anemia, unspecified type documented in this encounter Care Teams Tram Operator Relationship Specialty Start Date End Date Alanna Sparks MD [address] [place] [address] PCP - General Internal Medicine 04/09/18 06/15/21 Renato Bloom NP [address] [place] [address] PCP - General Family Medicine 06/16/21 documented as of this encounter Additional Source Comments The information contained in this document represents components of the legal health record. It is not the complete legal health record.[facility]
--- OUTSIDE RECORDS SUMMARY | 2025-10-09 09:46 | XMS_ITS | Clinical Summary ---
Author Organization [facility] Address [address] [place] [address] Phone Care Team Providers Care Farrowing Worker Name Role Phone Renato Bloom NP Primary [...] on patient's age to complete this topic IPV VACCINES Aged Out No longer eligi ble [...] Date/Time Associated Diagnosis Comments COMPREHENSIVE METABOLIC PANEL (CMP) Routine 05/24/2021 3:21 PM EDT Barrera's esophagus without dysplasia Anemia, unspecified type Change in bowel habit from Last 3 Months or Most Recently Relevant to Health Maintenance Results * (ABNORMAL) Comprehensive metabolic panel (05/24/2021 3:21 PM EDT) SODIUM 138 133 - 146 mmol/L [facility] POTASSIUM 4.6 3.3 - 5.1 mmol/L [facility] CHLORIDE 103 96 - 108 mmol/L [facility] CO2 25 21 - 35 mmol/L [facility] BUN 11 6 - 19 mg/dL [facility] CREATININE 1.00 0.5 - 1.5 mg/dL [facility] GLUCOSE 96 70 - 99 mg/dL [facility] ALBUMIN 3.8(L) 3.9 - 4.8 g/dL [facility] TOTAL PROTEIN 7.3 6.5 - 8.0 g/dL [facility] CALCIUM 9.0 8.4 - 10.3 mg/dL [facility] ALKALINE PHOSPHATASE 72 39 - 117 U/L [facility] TOTAL BILIRUBIN 0.2 0.0 - 1.2 mg/dL [facility] AST 22 0 - 37 U/L [facility] ALT 6 0 - 40 U/L [facility] GLOBULIN 3.5 1 - 4.8 g/dL [facility] EGFR 78 >59 mL/min/1.7 3m2 [facility] Comment:Estimated glomerular filtration rate calculated using the CKD-EPI equation. ANION GAP 15 10 - 20 mmol/L [facility] Blood 05/24/2021 3:21 PM EDT 05/24/2021 3:32 PM EDT us Laureen Gonzalez PA-C LAB BLOOD BKR ORDERABLES Final Result [facility] [address] [place] [address] from Last 3 Months or Most Recently Relevant to Health Maintenance Insurance [facility] MEDICARE PART A & B Member Subscriber Plan / Payer (Ef fective 2020-Present) Name:Rc Nolasco Member ID:[id number] Relation to Subscriber:Self Name:Rc Nolasco Subscriber ID:[id number] Payer ID:[id number] Group ID:Not on file Type:Medicare Address: [facility] [employer] [facility] [employer] [facility] [address] [facility] [place] [address] [facility] MEDICARE PART A & B [facility]IC[facility] PART A & B [facility] [address] [place] [address] [facility] MEDICARE PART A & B [facility]ICARE PART A & B [facility] PART A & B [facility]IC[facility] PART A & B [facility] [address] [place] [address] [facility] MEDICARE PART A & B [facility] MEDICARE PART A & B [facility] Care Teams Farrowing Worker Relationship Specialty Start Date End Date Renato Bloom NP [address] [place] [address] PCP - General Family Medicine 06/16/21 Additional Source Comments The information contained in this document represents components of the legal health record. It is not the complete legal health record.[facility]
--- OUTSIDE RECORDS SUMMARY | 2025-10-09 09:46 | XMS_ITS | Patient Health Record ---
Author Organization [facility] Address [address] [place] [address] Care Team Providers Care Milling Machine Set Up Operator Name Role Phone Chinedu Loza Jr [phone] Reason For Referral No Information Plan Of Treatment No Information
--- OUTSIDE RECORDS SUMMARY | 2025-10-09 09:46 | XMS_ITS | Encounter Summary ---
Author Organization [facility] Address [address] [place] [address] Phone Care Team Providers Care Testing Machine Operator Name Role Phone Alanna Sparks MD Primary Care Provider +1- [phone] Renato Bloom NP Primary Care Provide r Encounter Details Date Type Department Care Team (Late st Contact Info) Description 08/26/2019 Procedure Pass [facility] Endoscopy Admitting Dept Virtual Department [address] [place] [address] Social History Tobacco Use Types Packs/Day Years [...] on filedocumented in this encounter Care Teams Testing Machine Operator Relationship Specialty Start Date End Date Alanna Sparks MD [address] [place] [address] PCP - General Internal Medicine 04/09/18 06/15/21 Renato Bloom, RAY [address] [place] [address] PCP - General Family Medicine 06/16/21 documented as of this encounter Additional Source Comments The information contained in this document represents components of the legal health record. It is not the complete legal health record.[facility]
--- OUTSIDE RECORDS SUMMARY | 2025-10-09 09:46 | XMS_ITS | Encounter Summary ---
Author Organization [facility] Address [address] [place] [address] [place] [phone] Phone Care Team Providers Care Anatomy Teacher Name Role Phone Rentao Blomo NP Primary Care Provide r Encounter Details Date Type Department Care Team (Late st Contact Info) Description 06/29/2021 Procedure Pass [facility] Endoscopy Admitting Dept Virtual Department [address] [place] [address] Social History Tobacco Use Types Packs/Day Years [...] on filedocumented in this encounter Care Teams Anatomy Teacher Relationship Specialty Start Date End Date Renato Bloom NP [address] [place] [address] PCP - General Family Medicine 06/16/21 documented as of this encounter Additional Source Comments The information contained in this document represents components of the legal health record. It is not the complete legal health record.[facility]
--- OUTSIDE RECORDS SUMMARY | 2025-10-09 09:46 | XMS_ITS | Encounter Summary ---
Author Organization [facility] Address [address] [place] [address] Phone Care Team Providers Care Rectifier Operator Name Role Phone Alanna Sparks MD Primary Care Provider +1- [phone] Renato Bloom NP Primary Care Provide r Encounter Details Date Type Department Care Team (Latest Contact Info) Description 05/24/2021 Transcribe Orders [facility] [address] [place] [address] Laureen Gonzalez PA-C [address], [address] [place] [address] [email or web address] Barrera's esophagus without dysplasia (Primary Dx); Anemia, [...] FOLIC ACID >20.0(H) 4.2 - 19.9 ng/mL [facility] Blood 05/24/2021 3:21 PM EDT 05/24/2021 3:32 PM EDT Laureen Gonzalez PA-C LAB BLOOD BKR ORDERABLES Final Result Performing Organization Address [facility]/ZIP Co de Phone Number [address] [address] * (ABNORMAL) Ferritin (05/24/2021 3:21 PM EDT) FERRITIN 15(L) 30 - 400 ug/L [facility] Blood 05/24/2021 3:21 PM EDT 05/24/2021 3:32 PM EDT Laureen Gonzalez PA-C LAB BLOOD BKR ORDERABLES Final Result Performing Organization Address [facility] Co de Phone Number [address] [address] * TSH (05/24/2021 3:21 PM EDT) TSH 2.13 0.27 - 4.20 uIU/mL [facility] Blood 05/24/2021 3:21 PM EDT 05/24/2021 3:32 PM EDT Laureen Gonzalez PA-C LAB BLOOD BKR ORDERABLES Final Result Performing Organization Address [facility] Co de Phone Number [address] [address] * (ABNORMAL) Iron and iron binding capacity (05/24/2021 3:21 PM EDT) IRON 20(L) 45 - 160 ug/dL [facility] IRON BINDING CAPACITY 366 228 - 428 ug/dL [facility] TRANSFERRIN SATURAT. 5(L) 20 - 55 % [facility] Blood 05/24/2021 3:21 PM EDT 05/24/2021 3:32 PM EDT us Laureen Gonzalez PA-C LAB BLOOD BKR ORDERABLES Final Result Performing Organization Address City/[facility]/ZIP Co de Phone Number [address] [address] * (ABNORMAL) Lipase (05/24/2021 3:21 PM EDT) LIPASE 9(L) 16 - 63 U/L [facility] Blood 05/24/2021 3:21 PM EDT 05/24/2021 3:32 PM EDT us Laureen Gonzalez PA-C LAB BLOOD BKR ORDERABLES Final Result Performing Organization Address [facility]/ZIP Co de Phone Number [address] [address] * C-Reactive Protein (05/24/2021 3:21 PM EDT) Pathologist [facility] C REACTIVE PROTEIN <3.0 0.0 - 4.0 mg/L [facility] Blood 05/24/2021 3:21 PM EDT 05/24/2021 3:32 PM EDT us Laureen Gonzalez PA-C LAB BLOOD BKR ORDERABLES Final Result Performing Organization Address [facility]/ZIP Co de Phone Number [address] [address] * (ABNORMAL) Comprehensive metabolic panel (05/24/2021 3:21 PM EDT) SODIUM 138 133 - 146 mmol/L [facility] POTASSIUM 4.6 3.3 - 5.1 mmol/L [facility] CHLORIDE 103 96 - 108 mmol/L [facility] CO2 25 21 - 35 mmol/L [facility] BUN 11 6 - 19 mg/dL [facility] CREATININE 1.00 0.5 - 1.5 mg/dL [facility] GLUCOSE 96 70 - 99 mg/dL [facility] ALBUMIN 3.8(L) 3.9 - 4.8 g/dL [facility] TOTAL PROTEIN 7.3 6.5 - 8.0 g/dL [facility] CALCIUM 9.0 8.4 - 10.3 mg/dL [facility] ALKALINE PHOSPHATASE 72 39 - 117 U/L [facility] TOTAL BILIRUBIN 0.2 0.0 - 1.2 mg/dL [facility] AST 22 0 - 37 U/L [facility] ALT 6 0 - 40 U/L [facility] GLOBULIN 3.5 1 - 4.8 g/dL [facility] EGFR 78 >59 mL/min/1.7 3m2 [facility] Comment:Estimated glomerular filtration rate calculated using the CKD-EPI equation. ANION GAP 15 10 - 20 mmol/L [facility] Blood 05/24/2021 3:21 PM EDT 05/24/2021 3:32 PM EDT us Laureen Gonzalez PA-C LAB BLOOD BKR ORDERABLES Final Result Performing Organization Address City/State/[facility] Co de Phone Number [address] [address] * (ABNORMAL) CBC (05/24/2021 3:21 PM EDT) WBC 8.22 4.00 - 11.00 K/uL [facility] RBC 3.59(L) 3.90 - 5.69 M/uL [facility] HGB 8.1(L) 12.4 - 17.3 g/dL [facility] HCT 26.5(L) 37.0 - 51.0 % [facility] PLT 303 140 - 430 K/uL [facility] MCV 73.8(L) 78.0 - 97.0 fL [facility] MCH 22.6(L) 25.0 - 33.0 pg [facility] MCHC 30.6(L) 32.0 - 36.0 g/dL [facility] RDW 18.1(H) 11.0 - 15.0 % [facility] MPV 11.2 8.4 - 12.8 fl [facility] NRBC 0.00 0 /100 WBCs [facility] ABSOLUTE NRBC 0.00 0 K/uL [facility] Blood 05/24/2021 3:21 PM EDT 05/24/2021 3:32 PM EDT us Laureen Gonzalez PA-C LAB BLOOD BKR ORDERABLES Final Result Performing Organization Address [facility] Co de Phone Number [address] [address] * Immunoglobulin A (05/24/2021 3:21 PM EDT) IgA 378 70 - 400 mg/dL [facility] Blood 05/24/2021 3:21 PM EDT 05/24/2021 3:32 PM EDT us Laureen Gonzalez PA-C LAB BLOOD BKR ORDERABLES Final Result Performing Organization Address [facility] Co de Phone Number [address] [address] * Tissue transglutaminase IgA (05/24/2021 3:21 PM EDT) TTG IGA ANTIBODY <1.2 <4.0 (Negative) U/mL [facility] Blood 05/24/2021 3:21 PM EDT 05/24/2021 3:31 PM EDT us Laureen Gonzalez PA-C LAB BLOOD BKR ORDERABLES Final Result Performing Organization Address [facility] Co de Phone Number [facility] [address] [place] [address] documented in this encounter Visit Diagnoses Diagnosis Barrera's esophagus without dysplasia- Primary Anemia, unspecified type Change in bowel habit documented in this encounter Care Teams Rectifier Operator Relationship Specialty Start Date End Date Alanna Sparks MD [address] [place] [id number] PCP - General Internal Medicine 04/09/18 06/15/21 Renato Bloom NP [address] [place] [address] PCP - General Family Medicine 06/16/21 documented as of this encounter Additional Source Comments The information contained in this document represents components of the legal health record. It is not the complete legal health record.[facility]
--- OUTSIDE RECORDS SUMMARY | 2025-10-09 09:46 | XMS_ITS | Encounter Summary ---
Author Organization [facility] Address [address] [place] [phone] Phone Care Team Providers Care Diamond Setter Name Role Phone Alanna Sparks MD Primary Care Provider +1- [phone] Renato Bloom NP Primary Care Provide r Encounter Details Date Type Department Care Team (Late st Contact Info) Description 04/09/2018 Procedure Pass [facility] Endoscopy Admitting Dept Virtual Department [address] [place] [address] Social History Tobacco Use Types Packs/Day Years [...] on filedocumented in this encounter Care Teams Diamond Setter Relationship Specialty Start Date End Date Alanna Sparks MD [address] [place] [address] PCP - General Internal Medicine 04/09/18 06/15/21 Renato Bloom, RAY [address] [place] [address] PCP - General Family Medicine 06/16/21 documented as of this encounter Additional Source Comments The information contained in this document represents components of the legal health record. It is not the complete legal health record.[facility]
== END 2025-10-09 10:18 | disposition home or self-care (01) ==
LOC: HO.HUSH 09:09
PROVIDERS: PCP Nurse Practitioner Family; Visit Provider Urology
DX: N40.1 Benign prostatic hyperplasia with lower urinary tract symptoms (principal); R33.9 Retention of urine, unspecified; N31.9 Neuromuscular dysfunction of bladder, unspecified; Z13.9 Encounter for screening, unspecified
CPT/HCPCS: 99214; G2211